=== PATIENT | female | born 1995 | race Caucasian/White ===

== ENCOUNTER 2021-02-20 15:54 | Emergency (ER) | payer OTHER, MEDICAID, SELFPAY ==
[2021-02-20 15:56] VITALS: BP 133/83; PULSE 104; RESP 16; TEMP 36.8; O2SAT 99; BMI 40.3
--- NOTE | 2021-02-20 16:02 | CT_ITS ---
INDICATION: Pain EXAMINATION: CT Abdomen And Pelvis W/O Contrast Injection TECHNIQUE: Helically acquired images were obtained of the abdomen and pelvis without the use of IV contrast. A radiation dose optimization technique was used for this scan. Oral contrast: None. COMPARISON: None FINDINGS: Evaluation of the solid organs and vascular structures is limited without intravenous contrast. Visualized lung bases: Unremarkable Liver: Unremarkable Gallbladder: Contracted. Spleen: Unremarkable Pancreas: Unremarkable Adrenal Glands: Unremarkable Kidneys: Unremarkable Vasculature: Unremarkable GI Tract: Unremarkable Lymphadenopathy: None Peritoneum: No ascites. Bladder: Unremarkable Reproductive organs: Unremarkable Bones/Soft tissues: No suspicious osseous or soft tissue lesions CT/Abdomen/Pelvis without Cont IMPRESSION: No acute abnormalities in the abdomen or pelvis. Electronically Signed: Vinicius Pinedo MD at 18:56 EDT Tel , Service support ,
--- NOTE | 2021-02-20 16:03 | EX.ED.DYSGE1 ---
HPI History of Present Illness Chief Complaint: Abd Pain Informant: patient and EMS Narrative Narrative: 26-year-old female states about 30 minutes prior to arrival she was at work and she got up to urinate. She developed severe sharp stabbing pains in the suprapubic area up to her umbilicus. She states that she got very diaphoretic hot and nauseated. She looked pale to her employer so they called EMS. She took 2 Tylenol before their arrival. She states that on the way here if they had any bumps it would hurt worse or if she moved it would hurt. If she stays still the pain is tolerable. She denies any prior abdominal surgeries currently takes no medications. Normal bowel movements. No urinary symptoms. PFSH PFSH no medical history Home Medications multivitamin with iron 1 tab PO DAILY 02/20/21 [History Last Taken Unknown] Allergy/AdvReac Type Severity Reaction Status Date / Time Bleach (Sodium Hypochlorite) Allergy Swelling Verified 06/09/17 10:06 shellfish derived Allergy Swelling Verified 02/20/21 15:55 Sulfa (Sulfonamide Allergy Anaphylaxis Verified 06/09/17 10:06 Antibiotics) no surgical history Social History (Updated 02/20/21 @ 16:[address] Pierce Yañez, DO) Smoking Status: Never smoker substance use type: does not use ROS ROS ED Constitutional Constitutional ED: Reports sweats; Denies chills or weight loss Eyes Eyes: Denies change in vision or diplopia ENT ENT ED: Denies ear pain, rhinorrhea or sore throat Cardiovascular Cardiovascular: Denies chest pain, orthopnea, palpitations or racing heartbeat Respiratory/Chest Respiratory/Chest: Denies cough, dyspnea or orthopnea Gastrointestinal Gastrointestinal: Reports abdominal pain and nausea; Denies diarrhea or vomiting Genitourinary Genitourinary ED: Denies dysuria, hematuria or urinary frequency Musculoskeletal Musculoskeletal: Denies arthralgias or myalgias Integumentary Denies abscess or rash Neurologic Neurologic: Denies headache(s) or weakness Psychiatric Psychiatric: Denies anxiety, depression, suicidal ideation or suicidal thoughts Endocrine Endocrinology: Denies polydipsia, polyphagia or polyuria Allergic/Immunologic Allergic/Immunologic ED: Denies mouth swelling, tongue swelling or urticaria EXAM Physical Exam Const Vital Signs: 02/20/21 15:56 02/20/21 18:32 02/20/21 20:01 Temperature 98.2 F Temperature Source Oral Pulse Rate 104 H 89 96 Respiratory Rate 16 16 16 Blood Pressure 133/83 H 141/66 H 124/99 H Blood Pressure Mean 99 91 107 Pulse Ox 99 98 97 Oxygen Delivery Method Room Air Room Air Room Air Positive well nourished and well developed General Appearance ED: well developed HEENT Reports normocephalic, head/scalp atraumatic and moist mucous membranes Eyes PERRL and EOMs intact bilaterally Neck no lymphadenopathy, supple and no JVD Resp normal respiratory effort and clear to auscultation bilaterally Cardio regular rate, regular rhythm and no murmurs GI Palpation: soft and tender periumbilical and suprapubic Back/Spine no CVA tenderness and normal ROM Extremity normal to inspection General Extremety ED: Negative for edema General Extremity: Negative for edema Neuro oriented x3 and CN's II-XII intact bilaterally Sensorium / Orientation: alert Motor Exam: strength 5/5 throughout Psych mental status grossly normal Mood & Affect: Negative for depressed or tearful Skin no rashes or lesions noted and no wounds MDM MDM MDM Narrative Medical decision making narrative: Basic blood work was negative. Urinalysis contaminated with 10-25 squamous cells but otherwise negative. CT of the abdomen pelvis also negative. The patient received a dose of Toradol. Being unable to exclude ovarian torsion and given the sudden onset of her lower abdominal pain pelvic ultrasound was obtained. This showed physiologic fluid in the cul-de-sac but otherwise negative. At this point I think the patient can be safely discharged home. Instructions to return 24 hours if worsening or continued symptoms or follow-up with primary care. Lab Data Attestation: I reviewed the patient's lab results. Labs: Laboratory Results - last 24 hr 02/20/21 02/20/21 02/20/21 16:00 16:00 17:02 WBC 8.5 RBC 4.79 Hgb 12.9 Hct 39.8 MCV 83.1 MCH 26.9 L MCHC 32.4 RDW Std Deviation 39.4 RDW Coeff of Serg 13.2 Plt Count 230 MPV 9.1 Immature Gran % (Auto) 0.500 Neut % (Auto) 73.5 H Lymph % (Auto) 19.5 [place] % (Auto) 3.9 Eos % (Auto) 2.1 Baso % (Auto) 0.5 Absolute Neuts (auto) 6.3 Absolute Lymphs (auto) 1.66 Nucleated RBC % 0 Sodium 138 Potassium 4.0 Chloride 105 Carbon Dioxide 28.0 Anion Gap 5 BUN 10 Creatinine 0.73 Estim Creat Clear Calc 88.12 Est GFR (MDRD) Af Amer 123 Est GFR (MDRD) Non-Af 102 BUN/Creatinine Ratio 13.6 Glucose 147 H Calcium 8.2 L Total Bilirubin 0.30 AST 14 L ALT 21 Alkaline Phosphatase 81 Total Protein 7.2 Albumin 3.4 Globulin 3.8 Albumin/Globulin Ratio 0.9 Urine Color Yellow Urine Clarity Sl. Cloudy Urine pH 7.0 Ur Specific [place] 1.010 Urine Protein 15 H Urine Glucose (UA) 50 H Urine Ketones Negative Urine Occult Blood Negative Urine Nitrite Negative Urine Bilirubin Negative Urine Urobilinogen Normal Ur Leukocyte Esterase 100 H Urine RBC 0 SEEN Urine WBC 0-5 SEEN Ur Squamous Epith Cells 10-25 SEEN Urine Bacteria 0 SEEN Urine Mucus 0 SEEN Urine Test Negative Radiography Diagnostic Testing: Radiology Impression Abdomen/Pelvis CT 02/20/21 16:02 IMPRESSION: No acute abnormalities in the abdomen or pelvis. Electronically Signed: Vinicius Pinedo MD at 18:56 EDT Tel , Service support , Pelvis Ultrasound 02/20/21 19:15 IMPRESSION: Trace free fluid in the cul-de-sac, likely physiologic. Otherwise negative study. Electronically Signed: Hortensia Lee MD at 20:57 EDT Tel , Service support , Discharge Plan Triage Chief Complaint: Abd Pain ED Provider: Pierce Yañez Dx/Rx/DC Orders Clinical Impression: Abdominal pain, acute Instructions: ED Abdominal Pain Unkn Cause Fem Prescriptions: No Action multivitamin with iron Tablet 1 tab PO DAILY RF: 0 Primary Care Provider: Kevin Arias Referrals: Kevin Arias MD [Primary Care Provider] - (In 48 hours if continued symptoms or return to emergency department if new symptoms or worsening) Disposition Disposition: Home, Self Care
[2021-02-20 16:12] LABS: Absolute Lymphocyte Count 1.66 X10^3/uL (0.83-4.51); Absolute Neutrophil Count 6.3 X10^3/uL (2.0-7.7); Basophil# 0.04 X10^3/uL; Basophil% 0.5 % (0-1); Eosinophil# 0.18 X10^3/uL; Eosinophils% 2.1 % (0-5); Hematocrit 39.8 % (37-47); Hemoglobin 12.9 g/dL (12.0-15.0); Lymphocyte # 1.66 X10^3/ul (0.83-4.51); Lymphocyte % 19.5 % (19-41); Mean Corp Hgb Conc 32.4 g/dL (32-36); Mean Corpuscular Hgb 26.9 pg (27.0-32.0); Mean Corpuscular Volume 83.1 fL (81-99); Mean Platelet Vol. 9.1 fl (6.2-12.0); Monocyte# 0.33 X10^3/uL; Monocyte% 3.9 % (0-10); NRBC Flagged by Analyzer 0 % (0-5); Neutrophil # 6.28 X10^3/uL (2.7-7.7); Neutrophil % 73.5 % (47-70); Platelet Count 230 K/mm3 (150-450); RBC Distribution Width CV 13.2 % (11.6-14.6); RBC Distribution Width SD 39.4 fl (35.1-43.9); Red Blood Count 4.79 M/mm3 (4.2-5.4); White Blood Count 8.5 K/mm3 (4.4-11.0)
[2021-02-20] MEDS: Ketorolac 30 MG/ML Syringe IV (16:20)
[2021-02-20 16:40] LABS: ALB/GLOB Ratio 0.9 RATIO (0.9-2.4); AST(SGOT) 14 U/L (15-37); Alanine Aminotransfer ALT/SGPT 21 U/L (13-56); Albumin, Serum 3.4 g/dL (3.2-5.0); Alkaline Phosphatase 81 U/L (45-117); Anion Gap 5 (5-15); BUN 10 mg/dL (7-18); BUN/Creat Ratio 13.6 RATIO (10-20); Calcium,Total 8.2 mg/dL (8.5-10.1); Chloride 105 mmol/L (98-107); Creatinine, Serum 0.73 mg/dL (0.55-1.02); EST Glomerular Filtration Rate 102 mL/min (>60); Est Glom Filt Rate - Afr Amer 123 mL/min (>60); Estimated Creatinine Clearance 88.12 ml/min; Globulin 3.8 g/dL (2.2-4.2); Glucose 147 mg/dL (74-106); Protein, Total 7.2 g/dL (6.4-8.2); Sodium Level 138 mmol/L (136-145)
[2021-02-20 17:07] LABS: Bacteria 0 SEEN /hpf (None Seen); Mucous, Urine 0 SEEN /hpf (<or=2+); Red Blood Cells-Urine 0 SEEN /hpf (0-5)
[2021-02-20 17:23] LABS: Color, Urine Yellow (Yellow); Glucose, Dipstick 50 mg/dl (Normal); Ketone-Dipstick Negative (Negative); Leukocyte Esterase-Dipstick 100 /ul (Negative); Nitrite-Dipstick Negative (Negative); Occult Blood-Urine Negative /ul (Negative); Protein-Dipstick 15 mg/dl (Negative); Urine Bilirubin Dipstick Negative (Negative); Urine Clarity Sl. Cloudy (Clear); Urine Urobilinogen Normal (Normal)
[2021-02-20 17:32] LABS: Squamous Epithelial Cells - UA 10-25 SEEN /hpf (5-10)
[2021-02-20 17:34] LABS: White Blood Cells 0-5 SEEN /hpf (0-5)
[2021-02-20 17:48] LABS: Internal QC Validated? YES +Cl - CLEAR BKGD; Pregnancy, Urine Negative Negative
[2021-02-20 18:32] VITALS: BP 141/66; PULSE 89; RESP 16; O2SAT 98
--- NOTE | 2021-02-20 19:15 | US_ITS ---
EXAM: US PELVIS TRANSABDOMINAL, COMPLETE CLINICAL INDICATION: PELVIC PAIN TECHNIQUE: Transabdominal pelvic ultrasound was performed with grayscale and color Doppler imaging. This report was created using [employer] 3D report generation technology. COMPARISON: CT abdomen pelvis 02/20/2021. FINDINGS: UTERUS/CERVIX: Uterus is normal in size and echogenicity measuring 9 x 3.5 x 5.5 cm. Endometrial thickness is normal measuring 7 mm. Anteverted. There is no uterine mass. RIGHT OVARY: Right ovary is normal in size and echogenicity measuring 2 x 2.1 x 3.5 cm. No mass or dominant cyst. Blood flow is present in the right ovary. LEFT OVARY: Left ovary is normal in size and echogenicity measuring 2.8 x 3.3 x 2.4 cm. No mass or dominant cyst. Blood flow is present in the left ovary. FREE FLUID: Trace free fluid in the cul-de-sac. BLADDER: Unremarkable as visualized. Wall is normal thickness for degree of distention. US/Pelvic (Non ) IMPRESSION: Trace free fluid in the cul-de-sac, likely physiologic. Otherwise negative study. Electronically Signed: Hortensia Lee MD at 20:57 EDT Tel , Service support ,
[2021-02-20 20:01] VITALS: BP 124/99; PULSE 96; RESP 16; O2SAT 97
[2021-02-20 21:08] VITALS: BP 125/82; PULSE 97; RESP 17; O2SAT 99
== END 2021-02-20 21:10 | disposition home or self-care (01) ==
PROVIDERS: Emergency Provider Emergency Medicine; PCP Family Medicine
DX: R10.33 Periumbilical pain (principal); R10.2 Pelvic and perineal pain
CPT/HCPCS: 74176; 76856; 80053; 81001; 81025; 85025; 93976; 96374; 99285; A4216

== ENCOUNTER 2024-07-18 10:16 | Emergency (ER) | payer OTHER, SELFPAY ==
[2024-07-18 10:17] VITALS: BP 158/76; PULSE 99; RESP 16; TEMP 36.4; O2SAT 98
--- NOTE | 2024-07-18 12:15 | EX.ED.DYSGE1 ---
HPI History of Present Illness Chief Complaint: Lower Extremity Injury Narrative Narrative: Chief complaint and HPI: Right ankle pain. 29-year-old female with no significant past medical history presents for evaluation of right ankle pain. Patient states that she was holding her toddler this morning when she tripped on a step and inverted her right ankle. She states that she heard a pop in her ankle. Endorses pain mostly at the lateral malleolus but states that it slightly radiates into her calf from this area. She denies any foot pain. Denies any knee pain. Denies heel pain. Denies Achilles tendon pain. Did not hit her head. Pain is worse with ambulation. Review of systems: See HPI Medications: As listed on the chart Allergies: As listed on the chart PFSH: Per chart Vital signs: As listed on the chart. Reviewed. Physical exam: Gen: A&O x3, NAD Head: Normocephalic, atraumatic Eyes: No sclera icterus, conjunctiva clear ENT: Moist mucous membranes Neck: Full range of motion CV: Regular Resp: Nonlabored respiration Musc: Limited range of motion of the right ankle secondary to pain, swelling and tenderness to palpation of the lateral and medial malleolus-lateral malleolus has more swelling and pain, no ecchymosis, entire foot and heel nontender, no Achilles tenderness, DP/PT pulses plus 2 out of 4 bilaterally, knee and calf nontender to palpation, compartments soft Skin: Warm, dry Neuro: Alert, oriented, grossly intact, sensation intact Psych: Cooperative, appropriate mood and affect PFSH PFSH Medical History no medical history Home Medications ?Medication ?Instructions ?Recorded ?Last Taken ?Type multivitamin with iron 1 tab PO DAILY 02/20/21 Unknown History Allergy/AdvReac Type Severity Reaction Status Date / Time Bleach (Sodium Hypochlorite) Allergy Swelling Verified 07/18/24 10:17 shellfish derived Allergy Swelling Verified 07/18/24 10:17 Sulfa (Sulfonamide Allergy Anaphylaxis Verified 07/18/24 10:17 Antibiotics) Family History no significant family his Surgical History no surgical history Social History (Updated 02/20/21 @ 16:[address] Pierce Yañez, DO) Smoking Status: Never smoker substance use type: does not use EXAM Physical Exam Const Vital Signs: 07/18/24 10:17 Temperature 97.6 F L Temperature Source Temporal Pulse Rate 99 Respiratory Rate 16 Blood Pressure 158/76 H Blood Pressure Mean 103 Pulse Ox 98 Oxygen Delivery Method Room Air MDM MDM MDM Narrative Medical decision making narrative: 29-year-old female with no significant past medical history presents for evaluation of right ankle pain. Differential diagnosis includes but is not limited to sprain or fracture. Percocet and Zofran ordered for symptoms. X-ray of the ankle ordered. X-ray of the ankle was interpreted/reviewed by me, ED physician. No fracture or dislocation. Patient's soft tissue swelling is observed. Patient's pain is likely secondary to an ankle sprain. Patient placed in Aircast. Crutches as needed for weightbearing. Follow-up with orthopedics and PCP. She confirmed understanding of the plan. Tylenol Motrin as needed for pain. Ice and elevation. She confirmed understanding. Impression: 1. Right ankle sprain 2. Fall downstairs Radiography Diagnostic Testing: Clinical Impression(s) from Imaging Studies Ankle X-Ray 07/18/24 12:20 IMPRESSION: Diffuse soft tissue swelling. Electronically Signed: Julian Barker MD at 13:24 EST Reading Location ID and State: [facility] / [place] , Service support , Discharge Plan Triage Chief Complaint: Lower Extremity Injury ED Provider: Stephon Mccrary Dx/Rx/DC Orders Clinical Impression: Right ankle sprain Instructions: ED Ankle Sprain (Adult), ED RICE Prescriptions: No Action multivitamin with iron Tablet 1 tab PO DAILY Primary Care Provider: Kevin Arias Referrals: Kevin Arias MD [Primary Care Provider] - 3-5 Days Cb Mann MD [Med Staff - Active Staff] - 3-5 Days Activity Restrictions/Additional Instructions: Motrin and Tylenol as needed for pain. Weightbearing as tolerated. Follow-up with orthopedics and primary care physician. Print Language: Burmese Disposition Disposition: Home, Self Care Discharge Date/Time: 07/18/24 14:14
--- NOTE | 2024-07-18 12:20 | RAD_ITS ---
STUDY: X-RAY - RIGHT ANKLE REASON FOR EXAM: Female, 29 years old. Right ankle pain following injury. TECHNIQUE: 3 view(s) of the ankle. COMPARISON: None. FINDINGS: Normal visualized distal tibia and fibula. Normal medial and lateral malleoli. Normal tibiotalar articulation and ankle mortise. Normal visualized talus and calcaneus. The visualized subtalar, talonavicular, calcaneocuboid and tarsal articulations are normal. Diffuse soft tissue swelling. RAD/Ankle min 3 Views IMPRESSION: Diffuse soft tissue swelling. Electronically Signed: Julian Barker MD at 13:24 EST ,
[2024-07-18] MEDS: HYDROcodone Bitartrate/Apap 5/325 Tablet PO (12:30)
[2024-07-18] MEDS: Ondansetron ODT 4 MG Tablet PO (12:30)
== END 2024-07-18 14:14 | disposition home or self-care (01) ==
PROVIDERS: Emergency Provider Surgery; PCP Family Medicine; Visit Provider Surgery
DX: S93.401A Sprain of unspecified ligament of right ankle, initial encounter (principal); W10.9XXA Fall (on) (from) unspecified stairs and steps, initial encounter
CPT/HCPCS: 73610; 99284

== ENCOUNTER 2024-12-16 16:16 | Inpatient (IN) | payer OTHER, SELFPAY ==
[2024-12-16] VITALS (7 sets, daily range): BP systolic 100–129; BP diastolic 70–94; PULSE 70–89; RESP 15–16; TEMP 36.7–36.8; O2SAT 99–100; BMI 42.3; BMI 42.6
--- NOTE | 2024-12-16 16:36 | US_ITS ---
PROCEDURE: ABDOMEN LIMITED 12/16/2024 REASON FOR EXAM: PAIN/N/V TECHNIQUE: Complete abdominal ultrasound elkins-scale images with color doppler. PATIENT PREPARATION: Per protocol FINDINGS: Liver: Hepatomegaly, craniocaudal length 20 cm. Diffuse steatosis. Gallbladder: No stones, sludge, wall thickening or tenderness. Common bile duct: Dilated measuring up to 5 mm. Pancreas: Visualized portions are sonographically unremarkable. Kidneys: The right kidney measures 11.1 cm. No calculi or hydronephrosis. No focal lesion. US/Abdomen Limited IMPRESSION: Cholelithiasis and mildly dilated common bile duct. No visualized obstructing lesion or calculus. Hepatomegaly and diffuse steatosis Reading Location: [facility]
--- NOTE | 2024-12-16 16:38 | EDS_ITS ---
HPI HPI - GI History of Present Illness Chief Complaint: Abd Pain Informant: patient Narrative Narrative: Intermittent abdominal pain started yesterday, she did not eat at all yesterday. She had some nausea. Today the pain is much worse an hour or 2 after eating a bologna sandwich it is right upper quadrant along with nausea and dry heaves. No prior blood rectum no hematemesis. Never had this before. No abdominal surgeries in the past. No problems urinating recently. Hurts to take a deep breath, but she denies any cough or fever/chills recently no recent long travel out of the area or hospitalization/surgery, no leg pain or swelling. PFSH PFSH Medical History no medical history no medical history Home Medications ?Medication ?Instructions ?Recorded ?Last Taken ?Type NK 12/16/24 Unknown History Allergy/AdvReac Type Severity Reaction Status Date / Time diphenhydramine (From Allergy Intermediate Hives Verified 12/16/24 16:16 Benadryl) Bleach (Sodium Hypochlorite) Allergy Swelling Verified 12/16/24 16:16 shellfish derived Allergy Swelling Verified 12/16/24 16:16 Sulfa (Sulfonamide Allergy Anaphylaxis Verified 12/16/24 16:16 Antibiotics) Surgical History no surgical history Social History Smoking Status: Never smoker substance use type: does not use ROS ROS ED Constitutional Constitutional ED: Denies chills or fever(s) Eyes Eyes: Denies change in vision or diplopia ENT ENT ED: Denies rhinorrhea or sore throat Cardiovascular Cardiovascular: Denies chest pain or palpitations Respiratory/Chest Respiratory/Chest: Denies cough or dyspnea Gastrointestinal Gastrointestinal: Reports abdominal pain, nausea and vomiting; Denies diarrhea, hematemesis, hematochezia or melena Genitourinary Genitourinary ED: Denies dysuria or hematuria Musculoskeletal Musculoskeletal: Denies back pain or neck pain Integumentary Denies abscess or rash Neurologic Neurologic: Denies headache(s), paresthesias or weakness Psychiatric Psychiatric: Denies anxiety or suicidal thoughts EXAM Physical Exam Const Vital Signs: 12/16/24 16:16 12/16/24 18:16 12/16/24 20:00 Temperature 98.1 F Temperature Source Oral Pulse Rate 89 78 Respiratory Rate 16 16 Blood Pressure 129/94 H 126/89 H 117/70 Blood Pressure Mean 105 101 85 Pulse Ox 100 99 99 Oxygen Delivery Method Room Air Positive well nourished and well developed General Appearance ED: well developed and NAD HEENT Reports moist mucous membranes normocephalic and atraumatic Eyes PERRL and EOMs intact bilaterally Neck full ROM and supple Resp normal respiratory effort and clear to auscultation bilaterally Cardio regular rate, regular rhythm and no murmurs GI non-distended GI Narrative: Right upper quadrant epigastric tenderness, with a positive Cheema. Rest the abdomen is benign. Soft abdomen no rebound tenderness. Auscultation: normoactive bowel sounds Palpation: soft Back/Spine no CVA tenderness General Back: other FROM Extremity normal to inspection General Extremety ED: Negative for edema, pulses abnormal or tenderness General Extremity: Negative for edema or pulses abnormal Neuro oriented x3, CN's II-XII intact bilaterally and no sensory deficits noted Sensorium / Orientation: awake and alert Motor Exam: strength 5/5 throughout Skin no rashes or lesions noted and no wounds MDM MDM MDM Narrative Medical decision making narrative: Concerning history for biliary colic/acute cholecystitis. Patient was given Toradol she does not want anything narcotic, she did have improvement with her pain, but is still quite tender in the right upper quadrant and epigastrium. Her labs show elevated AST, ALT, alkaline phosphatase. Total bilirubin is normal. Ultrasound obtained on my interpretation shows gallstones without obvious pericholecystic fluid or gallbladder wall thickening. Radiology in agreement, stating also that the common bile duct was mildly dilated but without an obvious stone/obstruction. I suspect this may be indicative of early acute cholecystitis. Discussed with surgery Dr. Etienne. He examined in the ED and will admit. Jerome arias. Lab Data Attestation: I reviewed the patient's lab results. Labs: Laboratory Results - last 24 hr 12/16/24 12/16/24 16:30 18:29 WBC 8.6 RBC 5.17 Hgb 13.8 Hct 42.2 MCV 81.6 MCH 26.7 L MCHC 32.7 RDW Std Deviation 40.0 RDW Coeff of Serg 13.6 Plt Count 327 MPV 9.3 Immature Gran % (Auto) 0.300 Neut % (Auto) 76.0 H Lymph % (Auto) 13.8 L [place] % (Auto) 7.6 Eos % (Auto) 1.7 Baso % (Auto) 0.6 Absolute Neuts (auto) 6.5 Absolute Lymphs (auto) 1.18 Nucleated RBC % 0 Sodium 141 Potassium 4.2 Chloride 105 Carbon Dioxide 23.9 Anion Gap 12 BUN 8 Creatinine 0.79 Estim Creat Clear Calc 110.44 Est GFR (MDRD) Non-Af 104 BUN/Creatinine Ratio 10.6 Glucose 114 H Calcium 9.5 Total Bilirubin 1.30 AST 272 H ALT 176 H Alkaline Phosphatase 114 H Total Protein 7.6 Albumin 4.3 Globulin 3.3 Albumin/Globulin Ratio 1.3 Lipase 43 Urine Color Yellow Urine Clarity Sl. Cloudy Urine pH 7.0 Ur Specific [place] 1.010 Urine Protein Negative Urine Glucose (UA) Normal Urine Ketones Negative Urine Occult Blood Negative Urine Nitrite Negative Urine Bilirubin Negative Urine Urobilinogen 1 H Ur Leukocyte Esterase Negative Urine RBC 0 SEEN Urine WBC 0-5 SEEN Ur Squamous Epith Cells 5-10 SEEN Urine Bacteria 2+ Urine Mucus 0 SEEN Radiography Diagnostic Testing: Clinical Impression(s) from Imaging Studies Abdomen Ultrasound 12/16/24 16:36 IMPRESSION: Cholelithiasis and mildly dilated common bile duct. No visualized obstructing lesion or calculus. 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
[2024-12-16] MEDS: Ketorolac 30 MG/ML Syringe IV (16:43)
[2024-12-16] MEDS: 0.9% Normal Saline (1000mL) 1,000 ML 999 ML IV (16:43)
[2024-12-16] MEDS: Ondansetron 4 MG/2 ML Vial IV (16:43)
[2024-12-16 16:48] LABS: Absolute Lymphocyte Count 1.18 X10^3/uL (0.83-4.51); Absolute Neutrophil Count 6.5 X10^3/uL (2.0-7.7); Basophil# 0.05 X10^3/uL; Basophil% 0.6 % (0-1); Eosinophil# 0.15 X10^3/uL; Eosinophils% 1.7 % (0-5); Hematocrit 42.2 % (37-47); Hemoglobin 13.8 g/dL (12.0-15.0); Lymphocyte # 1.18 X10^3/ul (0.83-4.51); Lymphocyte % 13.8 % (19-41); Mean Corp Hgb Conc 32.7 g/dL (32-36); Mean Corpuscular Hgb 26.7 pg (27.0-32.0); Mean Corpuscular Volume 81.6 fL (81-99); Mean Platelet Vol. 9.3 fl (6.2-12.0); Monocyte# 0.65 X10^3/uL; Monocyte% 7.6 % (0-10); NRBC Flagged by Analyzer 0 % (0-5); Neutrophil # 6.52 X10^3/uL (2.7-7.7); Platelet Count 327 K/mm3 (150-450); RBC Distribution Width CV 13.6 % (11.6-14.6); Red Blood Count 5.17 M/mm3 (4.2-5.4); White Blood Count 8.6 K/mm3 (4.4-11.0)
[2024-12-16 17:02] LABS: ALB/GLOB Ratio 1.3 RATIO (0.9-2.4); AST(SGOT) 272 U/L (<=31); Alanine Aminotransfer ALT/SGPT 176 U/L (<=34); Albumin, Serum 4.3 g/dL (3.5-5.0); Alkaline Phosphatase 114 U/L (35-104); Anion Gap 12 (5-15); BUN 8 mg/dL (4-19); BUN/Creat Ratio 10.6 RATIO (10-20); Calcium,Total 9.5 mg/dL (7.6-11.0); Carbon Dioxide 23.9 mmol/L (21.0-32.0); Chloride 105 mmol/L (98-108); Creatinine, Serum 0.79 mg/dL (0.70-1.20); EST Glomerular Filtration Rate 104 (>60); Estimated Creatinine Clearance 110.44 ml/min (50-250); Globulin 3.3 g/dL (2.2-4.2); Glucose 114 mg/dL (70-99); Lipase 43 U/L (13-75); Potassium 4.2 mmol/L (3.3-5.1); Protein, Total 7.6 g/dL (5.9-8.4); Sodium Level 141 mmol/L (133-145)
[2024-12-16 18:32] LABS: Mucous, Urine 0 SEEN /hpf (<or=2+); Red Blood Cells-Urine 0 SEEN /hpf (0-5)
[2024-12-16 18:42] LABS: Color, Urine Yellow (Yellow); Glucose, Dipstick Normal (Normal); Ketone-Dipstick Negative (Negative); Leukocyte Esterase-Dipstick Negative /ul (Negative); Nitrite-Dipstick Negative (Negative); Occult Blood-Urine Negative /ul (Negative); Protein-Dipstick Negative (Negative); Urine Bilirubin Dipstick Negative (Negative); Urine Clarity Sl. Cloudy (Clear); Urine Urobilinogen 1 mg/dl (Normal)
[2024-12-16 18:53] LABS: Bacteria 2+ /hpf (None Seen); Squamous Epithelial Cells - UA 5-10 SEEN /hpf (5-10); White Blood Cells 0-5 SEEN /hpf (0-5)
--- NOTE | 2024-12-16 21:09 | HP.PCM_ITS ---
HPI - General General Date of Admission: 12/16/24 Chief Complaint: Acute onset abdominal pain HPI Narrative ABHIJIT BUNN, is a 29 F who presents to [facility] emergency department after experiencing acute onset abdominal pain following a meal of a bologna sandwich at approximately 2 PM this afternoon. She states she consumed a sandwich and sat down to read when she felt intense pain in her right upper quadrant as if someone was stuffing softballs up under [her] ribs. Associated symptoms included nausea and feeling of being exceptionally hot. She states she never experienced symptoms of the intensity that she experienced earlier today and this is what led her to present to the ER, however, she acknowledges approximately a 6 to 9-month history of postprandial discomfort. The latter has been investigated with EGD and gastric emptying studies through the [facility] which patient states are within normal limits and there was no good explanation for her symptoms given. Patient's ER workup included CBC was notable for mild shift but no leukocytosis. CMP demonstrated mild elevations of her AST, ALT, and alkaline phosphatase. Total bilirubin was within normal limits. Right upper quadrant ultrasound was obtained and showed cholelithiasis with normal gallbladder wall thickness of 2.2 mm but radiology dictated that the common bile duct was at the upper limits of normal at 5 mm. They did note along with this that there was no visible stone obstructing the lumen. Patient has no regular medications and has never undergone surgery. [facility] Medical History no medical history Home Medications ?Medication ?Instructions ?Recorded ?Last Taken ?Type NK 12/16/24 Unknown History Allergy/AdvReac Type Severity Reaction Status Date / Time diphenhydramine (From Allergy Intermediate Hives Verified 12/16/24 16:16 Benadryl) Bleach (Sodium Hypochlorite) Allergy Swelling Verified 12/16/24 16:16 shellfish derived Allergy Swelling Verified 12/16/24 16:16 Sulfa (Sulfonamide Allergy Anaphylaxis Verified 12/16/24 16:16 Antibiotics) Surgical History no surgical history Social History Smoking Status: Never smoker substance use type: does not use Vital Signs Vital Signs Vital Signs: 12/16/24 16:16 12/16/24 18:16 12/16/24 20:00 Temperature 98.1 F Temperature Source Oral Pulse Rate 89 78 Respiratory Rate 16 16 Blood Pressure 129/94 H 126/89 H 117/70 Blood Pressure Mean 105 101 85 Pulse Ox 100 99 99 Oxygen Delivery Method Room Air 12/16/24 21:08 Temperature 98.2 F Temperature Source Pulse Rate 72 Respiratory Rate 16 Blood Pressure 100/71 Blood Pressure Mean 80 Pulse Ox 99 Oxygen Delivery Method Weight Weight: 216 lb 8 oz Body Mass Index (BMI) 42.3 Physical Exam Const alert, oriented x3 and well nourished Resp normal respiratory effort GI GI Narrative: Obese, no visible herniation, numerous abdominal striae, nondistended, soft, tender to palpation with positive Cheema sign. In the supraumbilical position there is a scar from a prior umbilical piercing that is now close Results Lab / Micro Data 12/16/24 16:30 12/16/24 16:30 Labs: Laboratory Results - last 24 hr 12/16/24 16:30: WBC 8.6, RBC 5.17, Hgb 13.8, Hct 42.2, MCV 81.6, MCH 26.7 L, MCHC 32.7, RDW Std Deviation 40.0, RDW Coeff of Serg 13.6, Plt Count 327, MPV 9.3, Immature Gran % (Auto) 0.300, Neut % (Auto) 76.0 H, Lymph % (Auto) 13.8 L, [place] % (Auto) 7.6, Eos % (Auto) 1.7, Baso % (Auto) 0.6, Absolute Neuts (auto) 6.5, Absolute Lymphs (auto) 1.18, Nucleated RBC % 0, Sodium 141, Potassium 4.2, Chloride 105, Carbon Dioxide 23.9, Anion Gap 12, BUN 8, Creatinine 0.79, Estim Creat Clear Calc 110.44, Est GFR (MDRD) Non-Af 104, BUN/Creatinine Ratio 10.6, G lucose 114 H, Calcium 9.5, Total Bilirubin 1.30, AST 272 H, ALT 176 H, Alkaline Phosphatase 114 H, Total Protein 7.6, Albumin 4.3, Globulin 3.3, Albumin/Globulin Ratio 1.3, Lipase 43 12/16/24 18:29: Urine Color Yellow, Urine Clarity Sl. Cloudy, Urine pH 7.0, Ur Specific [place] 1.010, Urine Protein Negative, Urine Glucose (UA) Normal, Urine Ketones Negative, Urine Occult Blood Negative, Urine Nitrite Negative, Urine Bilirubin Negative, Urine Urobilinogen 1 H, Ur Leukocyte Esterase Negative, Urine RBC 0 SEEN, Urine WBC 0-5 SEEN, Ur Squamous Epith Cells 5-10 SEEN, Urine Bacteria 2+, Urine Mucus 0 SEEN Imaging Radiology Impression Abdomen Ultrasound 12/16/24 16:36 IMPRESSION: Cholelithiasis and mildly dilated common bile duct. No visualized obstructing lesion or calculus. Hepatomegaly and diffuse steatosis Reading Location: [facility] Assessment & Plan Assessment/Plan (1) Cholelithiasis: PLAN: Patient is a 29-year-old female who is presenting with acute onset right upper quadrant abdominal discomfort that occurred in the postprandial setting. Her history is consistent with a biliary source and workup showing cholelithiasis and both elevated transaminases and alkaline phosphatase is concerning for possible common bile duct stone that is either persistent or recently passed. Radiology comments that the common bile duct is at the upper limits of normal but I would generally consider 6 mm to be that limit. As indicated above, patient has persistent tenderness despite several hours of workup here in the ER and multiple rounds of pain medication. Therefore my differential would include possible early acute cholecystitis (not yet manifest on labs and ultrasound imaging) versus biliary colic with possible choledocholithiasis. Given the significant nature of some of these differentials as well as patient's persistent symptoms I recommend inpatient admission and proceeding with surgical cholecystectomy and intraoperative cholangiography. Hand drawing was made of the relevant anatomy and a detailed description of the possible diagnoses was given. I then offered my recommendation the patient and her and they readily accepted. Patient will be admitted to the [facility] floor with plans for surgery tomorrow. She will be made n.p.o. past midnight and initiated on empiric antibiotics for coverage in the event that she, in fact, does represent a case of choledocholithiasis. To this latter point she was made aware that if cholangiogram is positive she would require subsequent ERCP with gastroenterology. She confirmed understanding. Tao Etinene MD General Surgery Endocrine Surgery Pager: [facility] [address] [place] [address], [facility], [address] [place] [address] Office: [phone] (2) Elevated liver function tests: (3) Abdominal pain, acute: Charges/Coding Visit Charges Office Visits / Consults: [id number] ED Visit; Moderate Severity
[2024-12-16] MEDS: Piperacil/Tazobactam 3.375 GM/50 ML ML IV (21:16)
[2024-12-16] MEDS: Acetaminophen 500 MG Tablet PO (22:21)
[2024-12-16] MEDS: 0.9% Normal Saline (1000mL) 1,000 ML 125 ML IV (22:24)
[2024-12-16 22:53] LABS: Internal QC Validated? YES +Cl - CLEAR BKGD; Pregnancy, Urine Negative Negative
[2024-12-17] VITALS (15 sets, daily range): BP systolic 98–135; BP diastolic 56–90; PULSE 60–87; RESP 14–16; TEMP 36.3–37.1; O2SAT 89–100; BMI 42.6
[2024-12-17] MEDS: Piperacil/Tazobactam 3.375 GM in 0.9% Normal Saline (50mL MB+) 50 ML IV ×3 (05:30→22:49)
[2024-12-17] MEDS: 0.9% Normal Saline (1000mL) 1,000 ML 125 ML IV ×2 (05:31→18:47)
[2024-12-17] MEDS: 0.9% Normal Saline (250mL Bag) 250 ML 15 ML IV (05:31)
--- NOTE | 2024-12-17 06:00 | EKG12_ITS ---
Test Reason : PRE-OP Blood Pressure : */* mmHG Vent. Rate : 71 BPM Atrial Rate : 71 BPM P-R Int : 160 ms QRS Dur : 82 ms QT Int : 388 ms P-R-T Axes : 41 24 24 degrees QTcB Int : 421 ms Normal sinus rhythm with sinus arrhythmia Normal ECG No previous ECGs available Confirmed by Tao Jama ([id number]), development editor ABNER THOMAS ([id number]) on 12/17/2024 11:56:11 AM Referred By: Tao Etienne Confirmed By: Tao Jama
[2024-12-17 06:02] LABS: Absolute Lymphocyte Count 1.46 X10^3/uL (0.83-4.51); Absolute Neutrophil Count 2.7 X10^3/uL (2.0-7.7); Basophil# 0.04 X10^3/uL; Basophil% 0.8 % (0-1); Eosinophil# 0.19 X10^3/uL; Hematocrit 39.3 % (37-47); Hemoglobin 12.7 g/dL (12.0-15.0); Lymphocyte # 1.46 X10^3/ul (0.83-4.51); Lymphocyte % 30.9 % (19-41); Mean Corp Hgb Conc 32.3 g/dL (32-36); Mean Corpuscular Hgb 26.7 pg (27.0-32.0); Mean Corpuscular Volume 82.7 fL (81-99); Mean Platelet Vol. 9.5 fl (6.2-12.0); Monocyte% 6.4 % (0-10); NRBC Flagged by Analyzer 0 % (0-5); Neutrophil # 2.72 X10^3/uL (2.7-7.7); Neutrophil % 57.7 % (47-70); Platelet Count 293 K/mm3 (150-450); RBC Distribution Width CV 13.7 % (11.6-14.6); RBC Distribution Width SD 41.5 fl (35.1-43.9); Red Blood Count 4.75 M/mm3 (4.2-5.4); White Blood Count 4.7 K/mm3 (4.4-11.0)
[2024-12-17 06:30] LABS: ALB/GLOB Ratio 1.4 RATIO (0.9-2.4); AST(SGOT) 545 U/L (<=31); Alanine Aminotransfer ALT/SGPT 503 U/L (<=34); Albumin, Serum 3.8 g/dL (3.5-5.0); Alkaline Phosphatase 133 U/L (35-104); Anion Gap 9 (5-15); BUN 6 mg/dL (4-19); BUN/Creat Ratio 10.6 RATIO (10-20); Calcium,Total 8.4 mg/dL (7.6-11.0); Carbon Dioxide 22.3 mmol/L (21.0-32.0); Chloride 107 mmol/L (98-108); EST Glomerular Filtration Rate 125 (>60); Estimated Creatinine Clearance 146.11 ml/min (50-250); Globulin 2.7 g/dL (2.2-4.2); Glucose 97 mg/dL (70-99); Potassium 3.9 mmol/L (3.3-5.1); Protein, Total 6.4 g/dL (5.9-8.4); Sodium Level 138 mmol/L (133-145)
--- NOTE | 2024-12-17 07:51 | RAD_ITS ---
EXAM: DX cholangiogram or initial CLINICAL HISTORY: Abdominal pain, laparoscopic cholecystectomy TECHNIQUE: Intraoperative cholangiogram with 190 fluoroscopic video spot images FINDINGS: Fluoroscopy time 48.3 seconds Cumulative dose 32.83 mGy Cholangiogram via the cystic duct shows opacification of intra and extrahepatic bile ducts without filling defect. Contour appears smooth. By the end of the images contrast is not yet seen within the duodenum. Please refer to operative report for further detail. RAD/Cholangiogram/ O R,Initial IMPRESSION: Intraoperative cholangiogram fluoroscopy as above. Reading Location: [id number]
--- NOTE | 2024-12-17 07:54 | PN.SURG_ITS ---
Subjective Subjective Patient evaluated resting in bed. She notes pain in the right upper quadrant. She notes minimal amount of nausea. Objective Data Objective Data Vital Signs: Vital Signs Temp Pulse Resp BP Pulse Ox O2 Del Method 98.3 F 73 14 125/83 H 100 Room Air 12/17/24 03:43 12/17/24 03:43 12/17/24 03:43 12/17/24 03:43 12/17/24 03:43 12/17/24 03:47 Oxygen Delivery Method Room Air Weight: 218 lb 4.122 oz Body Mass Index (BMI) 42.6 Intake & Output: Intake and Output for Last 24 Hours 12/15/24 12/16/24 12/17/24 23:59 23:59 23:59 Intake Total 1050 / 1750 1616.33 / 1616.33 Balance 1050 / 1750 1616.33 / 1616.33 Lab / Micro Data 12/17/24 05:40 12/17/24 05:40 Labs: Laboratory Results - last 24 hr 12/16/24 16:30: WBC 8.6, RBC 5.17, Hgb 13.8, Hct 42.2, MCV 81.6, MCH 26.7 L, MCHC 32.7, RDW Std Deviation 40.0, RDW Coeff of Serg 13.6, Plt Count 327, MPV 9.3, Immature Gran % (Auto) 0.300, Neut % (Auto) 76.0 H, Lymph % (Auto) 13.8 L, [place] % (Auto) 7.6, Eos % (Auto) 1.7, Baso % (Auto) 0.6, Absolute Neuts (auto) 6.5, Absolute Lymphs (auto) 1.18, Nucleated RBC % 0, Sodium 141, Potassium 4.2, Chloride 105, Carbon Dioxide 23.9, Anion Gap 12, BUN 8, Creatinine 0.79, Estim Creat Clear Calc 110.44, Est GFR (MDRD) Non-Af 104, BUN/Creatinine Ratio 10.6, G lucose 114 H, Calcium 9.5, Total Bilirubin 1.30, AST 272 H, ALT 176 H, Alkaline Phosphatase 114 H, Total Protein 7.6, Albumin 4.3, Globulin 3.3, Albumin/Globulin Ratio 1.3, Lipase 43 12/16/24 18:29: Urine Color Yellow, Urine Clarity Sl. Cloudy, Urine pH 7.0, Ur Specific [place] 1.010, Urine Protein Negative, Urine Glucose (UA) Normal, Urine Ketones Negative, Urine Occult Blood Negative, Urine Nitrite Negative, Urine Bilirubin Negative, Urine Urobilinogen 1 H, Ur Leukocyte Esterase Negative, Urine RBC 0 SEEN, Urine WBC 0-5 SEEN, Ur Squamous Epith Cells 5-10 SEEN, Urine Bacteria 2+, Urine Mucus 0 SEEN 12/16/24 22:20: Urine Test Negative 12/17/24 05:40: WBC 4.7, RBC 4.75, Hgb 12.7, Hct 39.3, MCV 82.7, MCH 26.7 L, MCHC 32.3, RDW Std Deviation 41.5, RDW Coeff of Serg 13.7, Plt Count 293, MPV 9.5, Immature Gran % (Auto) 0.200, Neut % (Auto) 57.7, Lymph % (Auto) 30.9, [place] % (Auto) 6.4, Eos % (Auto) 4.0, Baso % (Auto) 0.8, Absolute Neuts (auto) 2.7, Absolute Lymphs (auto) 1.46, Nucleated RBC % 0, Sodium 138, Potassium 3.9, Chloride 107, Carbon Dioxide 22.3, Anion Gap 9, BUN 6, Creatinine 0.60 L, Estim Creat Clear Calc 146.11, Est GFR (MDRD) Non-Af 125, BUN/Creatinine Ratio 10.6, Glucose 97, Calcium 8.4, Total Bilirubin 1.10, AST 545 H, ALT 503 H, Alkaline Phosphatase 133 H, Total Protein 6.4, Albumin 3.8, Globulin 2.7, Albumin/Globulin Ratio 1.4 Radiography Diagnostic Testing: Radiology Impression Abdomen Ultrasound 12/16/24 16:36 IMPRESSION: Cholelithiasis and mildly dilated common bile duct. No visualized obstructing lesion or calculus. Hepatomegaly and diffuse steatosis Reading [facility] Physical Exam GI GI Narrative: Abdomen- soft, tenderness in the RUQ. Positive Cheema's sign Assessment & Plan Assessment/Plan (1) Cholelithiasis: (2) Acute calculous cholecystitis: PLAN: Plan I am following this patient in conjunction with Dr. Etienne. He has independently evaluated this patient. Labs reviewed. Liver enzymes increased Plan for laparoscopic cholecystectomy with intraoperative cholangiogram with Dr. Etienne at 2:30 today We will continue to monitor this patient Charges/Coding Visit Charges Inpatient E&M: 88126 Subs Hosp L1 (pre-op)
[2024-12-17] MEDS: 0.9% Saline Lock 10 ML Syringe IV (07:55)
[2024-12-17] MEDS: HYDROmorphone 0.5 MG/0.5 ML SYRINGE IV (07:55)
[2024-12-17] MEDS: Ondansetron 4 MG/2 ML Vial IV ×2 (08:00→20:03)
[2024-12-17] MEDS: 0.9% Normal Saline (1000mL) 1,000 ML 15 ML IV (13:45)
--- NOTE | 2024-12-17 14:08 | PCM.PRE.AN2 ---
ASA Classification* ASA Classification ASA Classification: 3 Assessment & Plan Anesthesia* Anesthesia Assessment Anesthesia Assessment: Discussed sedation and/or anesthesia options, risks, benefits, and alternatives with patient/parents/legal guardian/POA. Questions invited. The patient/parents/legal guardian/POA seems to understand and agrees to proceed with anesthesia plan. Reviewed the physical assessment, medical history, allergy history and patient home medications list prior to surgery/procedure/anesthetic and documented any changes. Performed airway and anesthesia risk assessments. Anesthesia Type Anesthesia Type: General History Source History Obtained from:: Patient and Chart Anesthesia Focused Assessment* Temperature: 97.6 F Pulse Rate: 73 Blood Pressure: 122/77 Respiratory Rate: 16 Pulse Ox: 99 Oxygen Delivery Method: Room Air Airway Assessment Mouth opens: >3 cm Mallampati Score: II Teeth Condition: Intact Neck Range of motion (ROM): Full ROM Focused Labs Anesthesia Preop lab: CBC WBC 4.7 K/mm3 (4.4-11.0) 12/17/24 05:40 12/17/24 RBC 4.75 M/mm3 (4.2-5.4) 12/17/24 05:40 12/17/24 Hgb 12.7 g/dL (12.0-15.0) 12/17/24 05:40 12/17/24 Hct 39.3 % (37-47) 12/17/24 05:40 12/17/24 Plt Count 293 K/mm3 (150-450) 12/17/24 05:40 12/17/24 CHEMISTRY Potassium 3.9 mmol/L (3.3-5.1) 12/17/24 05:40 12/17/24 Sodium 138 mmol/L (133-145) 12/17/24 05:40 12/17/24 BUN 6 mg/dL (4-19) 12/17/24 05:40 12/17/24 Creatinine 0.60 mg/dL (0.70-1.20) L 12/17/24 05:40 12/17/24 Glucose 97 mg/dL (70-99) 12/17/24 05:40 12/17/24 TSH 0.40 uIU/mL (0.358-3.74) 12/31/14 11:26 12/31/14 COAG Urine Test Negative Negative 12/16/24 22:20 12/16/24 Pre-Assessment Diagnosis/Proposed Procedure Planned Operative Procedure(s): Laparoscopic cholecystectomy with intraoperative cholangiography. 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 When Was Last Pacemaker Check QUESTION #4 FULL TEXT: You/Your Family Experience fever (hyperthermia) with Anesthesia Last Oral Intake Last Oral intake: Last Oral Intake NPO since 00:00 12/17/24 13:00 Meds taken in AM with sips of No 12/17/24 13:00 water? Meds patient instructed to take am of surgery PONV PONV - aquatic life laborer: PONV - aquatic life laborer Female HX of Motion Sickness HX of N/V After Surgery Non-Smoker Duration of Surgery greater than 60 minutes Number of Risk Factors PONV Score Height & Weight Height & Weight: Anesthesia: Height & Weight Height 5 ft 12/17/24 13:00 Weight: 99 kg 12/17/24 13:00 Body Mass Index (BMI) 42.6 12/17/24 13:00 Respiratory Assessment Respiratory Assessment - aquatic life laborer: Respiratory Tract Infection Hx - aquatic life laborer Hx Respiratory Tract Infection No 12/16/24 22:26 STOP Sleep Apnea STOP Sleep Apnea - aquatic life laborer: STOP Sleep Apnea - aquatic life laborer Hx Hypertension No 12/16/24 22:12 Hx Sleep Apnea No 12/16/24 22:12 CPAP BIPAP Do you snore loudly (louder Yes 12/16/24 22:12 than talking or can be heard Do you often feel tired/ No 12/16/24 22:12 fatigued/ sleepy during daytime? Has anyone observed you stop No 12/16/24 22:12 breathing during sleep? STOP Results Negative 12/16/24 22:12 QUESTION #5 FULL TEXT : Do you snore loudly (louder than talking or can be heard through closed doors)? 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 Specify any problems Hx of Preganancy in last 3 No 12/16/24 22:12 Months Nurse Filling Out Transfusion DREDICK 12/16/24 22:12 & Questions: Date: 12/16/24 12/16/24 22:12 Time: 22:13 12/16/24 22:12 Patient unable to answer at this time (ie. confused, unrespo /Reproduction History /Reproductive History - aquatic life laborer: /Reproductive Hx- aquatic life laborer Hx Now No 12/16/24 22:26 Gestational Age (in weeks): EDC: Hx Hx Para Hx Section SAB No 12/16/24 22:26 Active Medications Active Medications: Current Medications Generic Name Dose Route Start Last Admin Trade Name Freq PRN Reason Stop Dose Admin Acetaminophen 500 mg 12/16/24 21:21 12/16/24 22:21 Acetaminophen 500 Mg Tablet PO 500 mg Q6H PRN PRN Administration Pain Score 1-10 Hydromorphone HCl 0.5 mg 12/16/24 21:21 12/17/24 07:55 Hydromorphone 0.5 Mg/0.5 Ml Syringe IV 0.5 mg Q4H PRN PRN Administration Pain Score 6-10 Sodium Chloride 1,000 mls @ 125 mls/hr 12/16/24 21:25 12/17/24 05:31 IV 125 mls/hr .Q8H VANESSA Administration Piperacillin Sod/Tazobactam 50 mls @ 12.5 mls/hr 12/17/24 06:00 12/17/24 13:47 Sod 3.375 gm/ Sodium Chloride IV 12.5 mls/hr Q8 VANESSA Administration Sodium Chloride 250 mls @ 15 mls/hr 12/16/24 22:03 IV .[id number] PRN Saline Flush Sodium Chloride 250 mls @ 15 mls/hr 12/16/24 22:03 12/17/24 07:18 IV 0 mls/hr .[id number] PRN Infusion Additional IVPB Infusion Sodium Chloride 1,000 mls @ 15 mls/hr 12/17/24 13:35 12/17/24 13:45 IV 15 mls/hr .Q48H VANESSA Administration Ondansetron HCl 4 mg 12/16/24 21:21 12/17/24 08:00 Ondansetron 4 Mg/2 Ml Vial IV 4 mg Q6H PRN PRN Administration NAUSEA/VOMITING Sodium Chloride 10 - 40 ml 12/16/24 22:03 12/17/24 07:55 0.9% Saline Lock 10 Ml Syringe IV 10 ml UD PRN Administration SALINE FLUSH PFSH Medical History (Updated 12/16/24 @ 22:28 by Dot Diallo) Normal esophagogastroduodenoscopy (EGD) Medical History no medical history Home Medications ?Medication ?Instructions ?Recorded ?Last Taken ?Type NK 12/16/24 Unknown History Allergy/AdvReac Type Severity Reaction Status Date / Time diphenhydramine (From Allergy Intermediate Hives Verified 12/16/24 16:16 Benadryl) Bleach (Sodium Hypochlorite) Allergy Swelling Verified 12/16/24 16:16 shellfish derived Allergy Swelling Verified 12/16/24 16:16 Sulfa (Sulfonamide Allergy Anaphylaxis Verified 12/16/24 16:16 Antibiotics) Surgical History no surgical history no surgical history Social History Smoking Status: Never smoker substance use type: does not use Review of Systems (Anesthesia) ROS Narrative System reviewed and no additional complaints, except as documented.
--- NOTE | 2024-12-17 14:30 | GALL_PTH ---
PATIENT: ABHIJIT BUNN LOC: MS3 U#:[id number] AGE/SX: 29/F [place] [facility] [place]: Dr. Tao Etienne MD : [id number] BED: 1 DIS: 12/19/2024 SPEC #: [id number] RECD: 12/17/24 18:15 STATUS: CLARKE REJossy #: [id number] HAYES: 12/17/24 14:[address]: Tao Etienne DEPT: SURGICAL PATHOLOGY RECD BY: Javi Devi ENTERED: 12/18/24 08:27 SP TYPE: TIFFANY SAINZ DR: Dr. Kevin Arias MD Tissues: A - Gallbladder, NOS Procedures: Surgery Specimen Level III HEADER OPERATION: Laparoscopic cholecystectomy with IOC PRE-OP DIAGNOSIS: Cholelithiasis, acute calculous cholecystitis TISSUE SUBMITTED: A- Gallbladder MICROSCOPIC DIAGNOSIS A. Gallbladder, cholecystectomy: * Mild chronic cholecystitis with cholelithiasis MICROSCOPIC DESCRIPTION Slides are reviewed. GROSS DESCRIPTION A. Received in formalin in a container labeled with the patient's name, date of , and gallbladder is an 8.7 x 2.8 x 2.0 cm intact cholecystectomy specimen. A clamped 1.0 cm in length by 0.4 cm in diameter cystic duct margin is identified and inked black. The margin is shaved to reveal haro-yellow, bosselated, and friable stone fragments within the cystic duct, and present at the margin. The serosa is within normal limits. The specimen is opened to reveal a moderate amount of viscous green bile with multiple yellow, bosselated, and friable stones measuring up to 0.4 cm in greatest dimension. The mucosa is bile-stained green with diffuse schuler stippling. There is an average wall thickness of 0.4 cm. Recycling Worker sections are submitted in A1 (including cystic duct margin, en face with full-thickness sections). [facility] 12-18-2024 CPT:09538
--- NOTE | 2024-12-17 15:00 | RAD_ITS ---
EXAM: Intraoperative cholangiogram. CLINICAL HISTORY: Laparoscopic cholecystectomy. COMPARISON: Comparison is made with prior study done earlier in the day. TECHNIQUE: The examination was repeated with glucagon. Fluoroscopy time: 48.3 seconds. Cumulative dose: 32.83 mGy FINDINGS: Persistent filling defect in the distal portion of the common bile duct with poor excretion into the duodenum. Retained debris/calculi should be ruled out. RAD/Cholangiogram O.R./Subsequent IMPRESSION: Persistent filling defect in the distal portion of the common bile duct. Retai chen debris/stones should be ruled out. Reading Location: [facility]
[2024-12-17] MEDS: Bupiv/Epi 0.25% 30 ML Vial (16:48)
--- NOTE | 2024-12-17 16:49 | OP.PCM_ITS ---
Procedures Digestive 40xxx-49xxx: 47561 Laparo cholecystectomy/graph Operative Report (Standard) Operative Information Date of Procedure: 12/17/24 Pre-Operative Diagnosis: Cholelithiasis and biliary colic with elevated liver function testing Post-Operative Diagnosis: Acute on chronic cholecystitis with choledocholithiasis Surgery/Procedure Performed: Laparoscopic cholecystectomy with intraoperative ch olangiography government clerk: Yes [employer] Sales Representative: Aimee Quinones Tasks completed by certified first assistant: Opening & closing Type of Anesthesia: General/Supplemental RN Documented Start/Stop Times: Operation Date: 12/17/24 14:30 Case Time Into Pre-Op 12/17/24 13:32 Out of Pre-Op 12/17/24 14:45 Anesthesia Start 12/17/24 14:50 Into Room 12/17/24 14:50 Procedure Start 12/17/24 15:18 Procedure End 12/17/24 16:57 Anesthesia End 12/17/24 17:07 Out of Room 12/17/24 17:07 Into Recovery 12/17/24 17:10 Procedure Start Time: 15:18 Procedure Stop Time: 16:57 Select all DRAINS/GRAFTS/IMPLANTS that apply: None Estimated Blood Loss: 10 Specimen collected: Yes Description of specimen(s) removed: Gallbladder Description of surgery: After proper identification in the preoperative holding area the patient was brought to the operating room where she was positioned supine on the operating room table. Preoperatively SCDs were placed and antibiotics were administered. General anesthesia was then induced. Patient's abdomen was prepped and draped in usual sterile fashion. A formal timeout was conducted to confirm both patient and the procedure. Procedure was begun with a an umbilical incision which was extended deeply down to the level of the fascia. The fascia was elevated and incised, as well as the peritoneum. A finger sweep was performed to ensure there were no underlying adhesions and a 12 mm balloon trocar was inserted. Pneumoperitoneum was established at 15 mmHg. Three additional trocars (all 5 mm) were placed in the epigastrium and in the right upper quadrant. Inspection of the peritoneum revealed no inadvertent injury to the viscera below. The gallbladder was visualized with evidence of mild acute on chronic inflammation. The gallbladder fundus was then grasped and elevated cephalad. Then, using careful dissection the peritoneum was opened and the s tructures of the hepatocystic triangle were delineated. Once the critical view of safety was obtained, the cystic duct was singly clipped and partially divided with a ductotomy. The proximal duct was milked of numerous small yellow stones until there was backflow of bile. Using an Tejada Greenwood clamp, a cholangiocatheter was fed into the proximal segment of the cystic duct and clamped into place. Under fluoroscopy a cholangiogram was then obtained showing a standard length cystic duct flowing into a common bile duct with obstructed antegrade flow of contrast and nonfilling of the duodenum. There was retrograde flow through the common hepatic duct into the right and left hepatic ducts. Anesthesia was asked to administer 1 g of glucagon and the wait period of 5 minutes was established. The above process was repeated, but unfortunately there was persistent nonprogression of the contrast With this result, the cholangiocatheter was withdrawn and the proximal cystic duct was sealed with clips and the cystic duct was completely transected. The same process was used for the cystic artery. The gallbladder was then removed from the gallbladder fossa with the use of electrocautery. Several small secondary arteries were identified feeding the body portion of the gallbladder and were singly clipped and then divided with cautery. Selective electrocautery was used to obtain hemostasis in the gallbladder fossa. During this process of removal from the fossa two inadvertent rents in the gallbladder wall resulted in local spillage of bile. Titanium clips were placed across the rent to minimize the risk of further bile spillage. The gallbladder was placed in an Endo Catch bag and removed from the peritoneum. Morison's pouch was irrigated and the effluent was suctioned free of the peritoneum. Hemostasis was again confirmed. The umbilical port site was closed under direct laparoscopic vision using interrupted #1 PDS suture and a Mark-Madeline suture passer. Then pneu moperitoneum was evacuated and the sutures were tied down. A total of 30 mL of anesthetic was injected at the port sites for postoperative pain control. The skin of each port site was then closed in subcuticular fashion using 4-0 Monocryl. Steri-Strips and bandages were applied as dressings. Patient tolerated the procedure well without any apparent complications. On emergence from their anesthetic the patient was taken to PACU for ongoing recovery. Surgical Findings: ? Evidence of acute on chronic cholecystitis with mild gallbladder wall th ickening and mild edema ? Cystic duct occluded with numerous yellow gallstones ? Cholangiogram showing no antegrade filling of the common bile duct but evidence of distal occlusion and minimal to no filling of the duodenum. Retrograde filling present for the common hepatic and proper hepatic ducts. Complications Complications: No Admit VTE Documentation VTE Mechan Device Prophylaxis: SCD's
--- NOTE | 2024-12-17 17:11 | PCM.POST.ANE ---
Anesthesia: Postop Eval I Current Vital Signs Temperature: 98.2 F Pulse Rate: 73 Blood Pressure: 106/74 Respiratory Rate: 16 Pulse Ox: 97 Oxygen Delivery Method: Room Air Assessment Airway patent: Yes Spontaneous unlabored respirations: Yes Mental status: Awake and Calm nausea: No Vomiting: No Anesthesia Complication: No Fluid Hydration Crystalloid volume administer (ml): 1,000 Total IV fluid infused: 1,000 Progress Note Anesthesia document: Postop Eval 1 completed: Yes
--- NOTE | 2024-12-17 18:32 | PCM.POSTANE2 ---
Anesthesia Postop Eval I Sum Postop Eval Completion status Anesthesia document: Postop Eval 1 completed: Yes Anesthesia Postop Eval I Summary Anesthesia Postop Eval I Summary: Anesthesia Postop Eval I: Assessment Summary Airway patent Yes 12/17/24 17:14 Spontaneous unlabored Yes 12/17/24 17:14 respirations Mental status Awake,Calm 12/17/24 17:14 nausea No 12/17/24 17:14 Vomiting No 12/17/24 17:14 Anesthesia Postop Eval I: Fluid Summary Crystalloid volume administer 1,000 12/17/24 17:14 (ml) Colloids volume administered ( ml) Blood Product volume administered (ml) Total IV fluid infused 1,000 12/17/24 17:14 Anesthesia Postop Eval I: Summary Notes Anesthesia Complication No 12/17/24 17:14 Anesthesia Complication Comment: Post-operative progress note Anesthesia: Postop Eval II Evaluation Mental status: Awake and Calm Pain Level: 3 nausea: No Vomiting: No Complications Anesthesia Complication: No
[2024-12-17] MEDS: oxyCODONE 5 MG Tablet PO (20:00)
[2024-12-17] MEDS: Acetaminophen 500 MG Tablet PO (20:00)
[2024-12-18] VITALS (13 sets, daily range): BP systolic 99–142; BP diastolic 59–89; PULSE 70–116; RESP 16–18; TEMP 36.4–37.2; O2SAT 94–100; BMI 42.6
[2024-12-18] MEDS: Acetaminophen 500 MG Tablet PO ×2 (02:05→21:55)
[2024-12-18] MEDS: oxyCODONE 5 MG Tablet PO (02:05)
[2024-12-18] MEDS: 0.9% Normal Saline (1000mL) 1,000 ML 125 ML IV ×3 (03:15→19:41)
[2024-12-18 05:32] LABS: Absolute Neutrophil Count 7.9 X10^3/uL (2.0-7.7); Basophil# 0.01 X10^3/uL; Basophil% 0.1 % (0-1); Hematocrit 37.9 % (37-47); Hemoglobin 12.3 g/dL (12.0-15.0); Lymphocyte % 6.8 % (19-41); Mean Corp Hgb Conc 32.5 g/dL (32-36); Mean Corpuscular Hgb 26.6 pg (27.0-32.0); Mean Platelet Vol. 9.2 fl (6.2-12.0); Monocyte# 0.28 X10^3/uL; Monocyte% 3.2 % (0-10); NRBC Flagged by Analyzer 0 % (0-5); Neutrophil # 7.94 X10^3/uL (2.7-7.7); Neutrophil % 89.6 % (47-70); POSITIVE DIFFERENTIAL YES; Platelet Count 301 K/mm3 (150-450); RBC Distribution Width CV 13.8 % (11.6-14.6); RBC Distribution Width SD 40.9 fl (35.1-43.9); Red Blood Count 4.62 M/mm3 (4.2-5.4); White Blood Count 8.9 K/mm3 (4.4-11.0)
[2024-12-18 06:05] LABS: ALB/GLOB Ratio 1.4 RATIO (0.9-2.4); AST(SGOT) 457 U/L (<=31); Alanine Aminotransfer ALT/SGPT 657 U/L (<=34); Albumin, Serum 3.9 g/dL (3.5-5.0); Alkaline Phosphatase 157 U/L (35-104); Anion Gap 11 (5-15); BUN 5 mg/dL (4-19); BUN/Creat Ratio 7.3 RATIO (10-20); Calcium,Total 8.7 mg/dL (7.6-11.0); Carbon Dioxide 21.2 mmol/L (21.0-32.0); Chloride 106 mmol/L (98-108); Creatinine, Serum 0.65 mg/dL (0.70-1.20); EST Glomerular Filtration Rate 122 (>60); Estimated Creatinine Clearance 134.87 ml/min (50-250); Globulin 2.8 g/dL (2.2-4.2); Glucose 126 mg/dL (70-99); Protein, Total 6.7 g/dL (5.9-8.4); Sodium Level 138 mmol/L (133-145); Total Bilirubin 1.16 mg/dL (0.00-1.30)
[2024-12-18] MEDS: Piperacil/Tazobactam 3.375 GM in 0.9% Normal Saline (50mL MB+) 50 ML IV ×3 (06:24→21:52)
--- NOTE | 2024-12-18 07:56 | PCM.PN.SRG ---
Subjective Subjective Patient seen and examined during AM rounds. She is found resting in bed. She reports some soreness overnight and this was confirmed by nursing. She otherwise states she is feeling better. She wishes to know when she is likely to go for her ERCP procedure with gastroenterology. She states that she had wished for some solid food but at the same time denies much of an appetite. Objective Data Objective Data Vital Signs: Vital Signs Temp Pulse Resp BP Pulse Ox O2 Del Method O2 Flow Rate 98.9 F 70 16 99/59 L 98 Room Air 2 12/18/24 06:21 12/18/24 06:21 12/18/24 06:21 12/18/24 06:21 12/18/24 06:21 12/18/24 06:21 12/17/24 18:09 Oxygen Flow Rate (L/min) 2 Oxygen Delivery Method Room Air Weight: 218 lb 4.122 oz Body Mass Index (BMI) 42.6 Intake & Output: Intake and Output for Last 24 Hours 12/16/24 12/17/24 12/18/24 23:59 23:59 23:59 Intake Total 1050 / 1750 2791.83 / 3041.83 1418.5 / 1418.5 Balance 1050 / 1750 2791.83 / 3041.83 1418.5 / 1418.5 Lab / Micro Data 12/18/24 05:24 12/18/24 05:24 Labs: Laboratory Results - last 24 hr 12/18/24 05:24: WBC 8.9, RBC 4.62, Hgb 12.3, Hct 37.9, MCV 82.0, MCH 26.6 L, MCHC 32.5, RDW Std Deviation 40.9, RDW Coeff of Serg 13.8, Plt Count 301, MPV 9.2, Immature Gran % (Auto) 0.300, Neut % (Auto) 89.6 H, Lymph % (Auto) 6.8 L, Beckham % (Auto) 3.2, Eos % (Auto) 0.0, Baso % (Auto) 0.1, Absolute Neuts (auto) 7.9 H, Absolute Lymphs (auto) 0.60 L, Nucleated RBC % 0, Sodium 138, Potassium 4.0, Chloride 106, Carbon Dioxide 21.2, Anion Gap 11, BUN 5, Creatinine 0.65 L, Estim Creat Clear Calc 134.87, Est GFR (MDRD) Non-Af 122, BUN/Creatinine Ratio 7.3 L, Glucose 126 H, Calcium 8.7, Total Bilirubin 1.16, AST 457 H, ALT 657 H, Alkaline Phosphatase 157 H, Total Protein 6.7, Albumin 3.9, Globulin 2.8, Albumin/Globulin Ratio 1.4 Radiography Diagnostic Testing: Radiology Impression Cholangiogram 12/17/24 07:51 IMPRESSION: Intraoperative cholangiogram fluoroscopy as above. Reading Location: [facility] Physical Exam Const oriented x3 and no apparent distress Resp normal respiratory effort GI GI Narrative: Minimally distended, operative dressings intact with spotting strikethrough bloody drainage, soft, minimally and appropriately tender to palpation about incisions (patient gestures to the right upper quadrant medial incision as being the most tender of all) Assessment & Plan Assessment/Plan (1) Choledocholithiasis with acute cholecystitis: PLAN: Patient 29-year-old female postoperative day 1 from laparoscopic cholecystectomy with intraoperative cholangiography. Postoperative diagnosis is acute cholecystitis with choledocholithiasis as per positive cholangiography. GI notified intraoperatively and reports intent to proceed with ERCP later today. Patient had overall uneventful overnight course but is sore this morning. She was made n.p.o. past midnight in anticipation of ERCP. Laboratories were reviewed and consistent with persistent biliary obstruction. Will plan to follow-up procedure with GI and determine if patient is appropriate for discharge to home. Tao Etienne MD General Surgery Endocrine Surgery Pager: [facility] [address] [place] [address], [facility], [address] [place] [address] Office: [phone] (2) Cholelithiasis: (3) Elevated liver function tests: (4) Abdominal pain, acute: Charges/Coding Visit Charges Inpatient E&M: 68401 Subs Hosp L2
--- NOTE | 2024-12-18 09:29 | DS.PCM_ITS ---
Providers Date of Admission: 12/17/24 Primary Care Physician: Dr. Kevin Arias MD Consultations 12/17/24 17:26 Consult: Gastroenterology Routine Consulting Provider: [facility] G[facility] Reason for Consult: choledocholithiasis EMERGENT Consult: Yes MD Notified: Yes Date Notified: 12/17/24 Time Notified: 17:26 Method of Notification: Verbal Reason For Visit: CHOLELITHIASIS WITH ELEVATED LFTS CONCERNING Diagnosis Discharge Diagnosis (1) Choledocholithiasis with acute cholecystitis: Status: Acute Code(s): K80.42 - Calculus of bile duct with acute cholecystitis without obstruction (2) Cholelithiasis: Status: Acute Code(s): K80.20 - Calculus of gallbladder without cholecystitis without obstruction (3) Elevated liver function tests: Status: Acute Code(s): R79.89 - Other specified abnormal findings of blood chemistry (4) Abdominal pain, acute: Status: Acute Code(s): R10.9 - Unspecified abdominal pain Plan I am following this patient in conjunction with Dr. Etienne. He has independently evaluated this patient. Labs reviewed. Liver enzymes increased Plan for laparoscopic cholecystectomy with intraoperative cholangiogram with Dr. Etienne at 2:30 today We will continue to monitor this patient Medications at Discharge Home Medications acetaminophen 500 mg tablet 500 mg PO Q6H PRN PRN Pain Score 1-10 #0 tabs 12/18/24 oxycodone 5 mg tablet 5 mg PO Q6H PRN PRN Pain Score 6-10 3 days #9 tabs 12/18/24 Hospital Course Operations cholecystecomy and ERCP Summary of Care Provided Minutes Spent on Discharge: 30 Hospital Course: Patient is a 29 y/o F who presented with 1 day history of right upper quadrant abdominal pain. RUQ u/s was obtained and demonstrated cholelithiasis and mildly dilated common bile duct without cholecystitis. Patient's liver enzymes were elevated and abdominal exam was positive for Cheema's sign and tenderness in the RUQ. Dr. Etienne performed a laparoscopic cholecystectomy with intraoperative cholangiogram on 12/17. Patient was noted to have choledocholithiasis on cholangiogram. Glucagon was attempted to push the gallstones through, unfortunately this was unsuccessful. Dr. Mejía performed an ERCP with gallstone removal and 1 stent placement on 12/18. Patient tolerated both procedures well. She had an uneventful hospitalization. Upon discharge, she denies any nausea, vomiting, fever. She notes incisional discomfort. She is tolerating a diet. She will follow-up with our office in 2 weeks for a post-operative evaluation. Physical Exam GI normal to inspection, nondistended, normoactive bowel sounds GI Narrative: Abdomen- Incisions c/d/i. No erythema or infection noted. Weight / BMI Weight Weight: 218 lb 4.122 oz Body Mass Index (BMI) 42.6 ABG / Lab / Microbiology Data 12/18/24 05:24 12/18/24 05:24 Laboratory: Laboratory Results - last 24 hr 12/18/24 05:24: WBC 8.9, RBC 4.62, Hgb 12.3, Hct 37.9, MCV 82.0, MCH 26.6 L, MCHC 32.5, RDW Std Deviation 40.9, RDW Coeff of Serg 13.8, Plt Count 301, MPV 9.2, Immature Gran % (Auto) 0.300, Neut % (Auto) 89.6 H, Lymph % (Auto) 6.8 L, Jay % (Auto) 3.2, Eos % (Auto) 0.0, Baso % (Auto) 0.1, Absolute Neuts (auto) 7.9 H, Absolute Lymphs (auto) 0.60 L, Nucleated RBC % 0, Sodium 138, Potassium 4.0, Chloride 106, Carbon Dioxide 21.2, Anion Gap 11, BUN 5, Creatinine 0.65 L, Estim Creat Clear Calc 134.87, Est GFR (MDRD) Non-Af 122, BUN/Creatinine Ratio 7.3 L, Glucose 126 H, Calcium 8.7, Total Bilirubin 1.16, AST 457 H, ALT 657 H, A lkaline Phosphatase 157 H, Total Protein 6.7, Albumin 3.9, Globulin 2.8, Albumin/Globulin Ratio 1.4 Radiography Diagnostic Testing: Radiology Impression Cholangiogram,Operative 12/17/24 15:00 IMPRESSION: Persistent filling defect in the distal portion of the common bile duct. Retained debris/stones should be ruled out. Reading Location: [id number] Cholangiopancreatogram 12/18/24 15:00 IMPRESSION: A biliary stent was placed in the common bile duct. Reading Location: [id number]/C Instructions Discharge Diet: Light diet - advance as tolerated Discharge Activity: May Shower (48 hours. No tube bathing for 2 weeks) Lifting Restrictions: No lifting greater than 15 pounds for 2 weeks Call your doctor if your incision/area has: Continuous Slow Oozing, Sudden Increased Bleeding, Increased Pain/ Swelling, Increased Redness, Foul Smelling Discharge and Swelling at the incision site Suture Line Care: Avoid Pulling/Pushing and Avoid Pinching/Bending Remove Dressing in: 2 days Cleanse incision/area with: Soap & Water DC O2, CPAP, BIPAP Needs Home O2 Discharge instructions: No DC home with Oxygen: No Please Follow Up With: Tierra Molina PA-C When: Please contact our office at [phone], option #2 to schedule a 2 week follow-up appointment. Meaningful Use Info Meaningful Use Meaningful Use Diagnoses (Choose all that apply): None applicable Ischemic Stroke Statin Dosing Therapy Reference: STATIN DOSE THERAPY REFERENCE: * Patients > 75 years receive moderate or high dose statin therapy. * Patients 75 years or YOUNGER should receive HIGH intensity statin dose unless contraindicated. You will be required to document reason for non-treatment if statin daily dose does not meet guidelines. HIGH DOSE STATIN THERAPY DAILY Atorvastatin > than or = to 40 mg Rosuvastatin > than or = to 20 mg Amlodipine + Atorvastatin > than or = to 2.5/40 mg Ezetimibe + Simvastatin 10/80 mg Simvastatin 80mg Discharge Plan Admission Admit Date/Time: 12/17/24 17:31 Primary Reason for Your Visit: Choledocholithiasis with acute cholecystitis Attending Provider: Tao Etienne Primary Care Provider: Kevin Arias Instructions Additional Instructions / Restrictions: Cholecystectomy Diet ? Start light with soups and soft bland foods. You may advance diet as tolerated. Activity ? You may drive in 3-5 days but not while taking narcotic pain medication. ? I encourage walking. You may go up steps, one at a time. ? Do not swim or use hot tubs for 2 weeks. ? For comfort, you may use warm compresses or ice as needed for 15-20 minutes at a time. Lifting ? You may lift up to 15 pounds for the first 2 weeks. Dressings/Incision ? You may shower OVER your plastic dressings ? Do NOT tub bathe for 2 week ? Leave plastic dressings on for 2 days. ? When plastic dressings are removed, you will find steri strips. It is okay to continue showering with them in place, pat them dry. ? You may remove steri-strips after 1 week. We recommend getting them soaking wet for easier removal. Medications ? Anesthesia used during surgery and pain medications may cause constipation. I recommend initiating on the day of surgery a fiber supplement like, Metamucil, Citrucel, FiberCon, Benefiber, or a generic form of these medications. 1 heaping tablespoon in water daily. You may continue to utilize any bowel regimen or oral laxatives that you routinely take. ? As long as you are not intolerant to Tylenol, acetaminophen, ibuprofen, Motrin, Advil, Aleve, or similar medications, I would recommend transitioning to these [id number] medicines as soon as possible instead of continued use of narcotic pain medication. Follow up ? You should call [facility] soon after surgery, at [phone] option 2 to make a follow up appointment for 14 days after your surgery. Discharge Orders/Prescriptions Prescriptions: New acetaminophen 500 mg Tablet 500 mg PO Q6H PRN PRN (Reason: Pain Score 1-10) Qty: 0 0RF oxycodone 5 mg Tablet 5 mg PO Q6H PRN PRN (Reason: Pain Score 6-10) 3 Days Qty: 9 0RF Referrals / Follow Up: Kevin Arias MD [Primary Care Provider] - Tierra Molina PA-C [Med Staff - [facility]] - 12/27/24 () Charges/Coding Visit Charges Inpatient E&M: 18353 Disch Hosp
--- NOTE | 2024-12-18 13:09 | PRE.ANES_ITS ---
ASA Classification* ASA Classification ASA Classification: 3 Assessment & Plan Anesthesia* Anesthesia Assessment Anesthesia Assessment: Discussed sedation and/or anesthesia options, risks, benefits, and alternatives with patient/parents/legal guardian/POA. Questions invited. The patient/parents/legal guardian/POA seems to understand and agrees to proceed with anesthesia plan. Reviewed the physical assessment, medical history, allergy history and patient home medications list prior to surgery/procedure/anesthetic and documented any changes. Performed airway and anesthesia risk assessments. Anesthesia Type Anesthesia Type: General History Source History Obtained from:: Patient and Chart Anesthesia Focused Assessment* Temperature: 97.9 F Pulse Rate: 71 Blood Pressure: 142/86 Respiratory Rate: 16 Pulse Ox: 100 Oxygen Delivery Method: Room Air Oxygen Flow Rate (L/min): 2 Airway Assessment Mouth opens: >3 cm Mallampati Score: III Teeth Condition: Intact Focused Labs Anesthesia Preop lab: CBC WBC 8.9 K/mm3 (4.4-11.0) 12/18/24 05:12/18/24 RBC 4.62 M/mm3 (4.2-5.4) 12/18/24 05:24 12/18/24 Hgb 12.3 g/dL (12.0-15.0) 12/18/24 05:24 12/18/24 Hct 37.9 % (37-47) 12/18/24 05:24 12/18/24 Plt Count 301 K/mm3 (150-450) 12/18/24 05:24 12/18/24 CHEMISTRY Potassium 4.0 mmol/L (3.3-5.1) 12/18/24 05:24 12/18/24 Sodium 138 mmol/L (133-145) 12/18/24 05:24 12/18/24 BUN 5 mg/dL (4-19) 12/18/24 05:12/18/24 Creatinine 0.65 mg/dL (0.70-1.20) L 12/18/24 05:24 Glucose 126 mg/dL (70-99) H 12/18/24 05:24 12/18/24 TSH 0.40 uIU/mL (0.358-3.74) 12/31/14 11:26 COAG Urine Test Negative Negative 12/16/24 22:20 12/16/24 Pre-Assessment Diagnosis/Proposed Procedure Planned Operative Procedure(s): Laparoscopic cholecystectomy with intraoperative cholangiography. 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 When Was Last Pacemaker Check QUESTION #4 FULL TEXT: You/Your Family Experience fever (hyperthermia) with Anesthesia Last Oral Intake Last Oral intake: Last Oral Intake NPO since 00:00 12/18/24 12:58 Meds taken in AM with sips of No 12/18/24 12:58 water? Meds patient instructed to take am of surgery PONV PONV - precinct commanding officer: PONV - precinct commanding officer Female HX of Motion Sickness HX of N/V After Surgery Non-Smoker Duration of Surgery greater than 60 minutes Number of Risk Factors PONV Score Height & Weight Height & Weight: Anesthesia: Height & Weight Height 5 ft 12/18/24 12:58 Weight: 99 kg 12/18/24 12:58 Body Mass Index (BMI) 42.6 12/18/24 12:58 Respiratory Assessment Respiratory Assessment - precinct commanding officer: Respiratory Tract Infection Hx - precinct commanding officer Hx Respiratory Tract Infection No 12/17/24 22:35 STOP Sleep Apnea STOP Sleep Apnea - precinct commanding officer: STOP Sleep Apnea - precinct commanding officer Hx Hypertension No 12/16/24 22:12 Hx Sleep Apnea No 12/17/24 17:55 CPAP BIPAP Do you snore loudly (louder Yes 12/16/24 22:12 than talking or can be heard Do you often feel tired/ No 12/16/24 22:12 fatigued/ sleepy during daytime? Has anyone observed you stop No 12/16/24 22:12 breathing during sleep? STOP Results Negative 12/17/24 17:10 QUESTION #5 FULL TEXT : Do you snore loudly (louder than talking or can be heard through closed doors)? Tobacco Use History Tobacco Use History - precinct commanding officer: Tobacco Use History - precinct commanding officer Tobacco Use Smoking Status Never smoker 12/16/24 22:12 Hx Tobacco Use No 12/16/24 22:12 Years Smoking Packs Smoked per Day Smoking Cessation Date was within the last 15 years Hx Smoking Cessation Date Hx Smoking Cessation Counseling Hematologic Medial History Hematologic Hx - precinct commanding officer: Hematologic Medical Hx - improvement coordinator Hx of Blood Transfusion No 12/16/24 22:12 Hx of Transfusion in last 3 No 12/16/24 22:12 Months Date of Last Transfusion (if within last 3 months) Ever experience any problems No 12/16/24 22:12 with transfusion(s)? Specify any problems Hx of Preganancy in last 3 No 12/16/24 22:12 Months Nurse Filling Out Transfusion DREDICK 12/16/24 22:12 & Questions: Date: 12/16/24 12/16/24 22:12 Time: 22:13 12/16/24 22:12 Patient unable to answer at this time (ie. confused, unrespo /Reproduction History /Reproductive History - precinct commanding officer: /Reproductive Hx- precinct commanding officer Hx Now No 12/17/24 22:35 Gestational Age (in weeks): EDC: Hx Hx Para Hx Section SAB No 12/17/24 22:35 Active Medications Active Medications: Current Medications Generic Name Dose Route Start Last Admin Trade Name Freq PRN Reason Stop Dose Admin Acetaminophen 500 mg 12/16/24 21:21 12/18/24 02:05 Acetaminophen 500 Mg Tablet PO 500 mg Q6H PRN PRN Administration Pain Score 1-10 Hydromorphone HCl 0.5 mg 12/16/24 21:21 12/17/24 07:55 Hydromorphone 0.5 Mg/0.5 Ml Syringe IV 0.5 mg Q4H PRN PRN Administration Pain Score 6-10 Sodium Chloride 1,000 mls @ 125 mls/hr 12/16/24 21:25 12/18/24 11:27 IV 125 mls/hr .Q8H VANESSA Administration Piperacillin Sod/Tazobactam 50 mls @ 12.5 mls/hr 12/17/24 06:00 12/18/24 11:12 Sod 3.375 gm/ Sodium Chloride IV Infused Q8 VANESSA Infusion Sodium Chloride 250 mls @ 15 mls/hr 12/16/24 22:03 IV .[id number] PRN Saline Flush Sodium Chloride 250 mls @ 15 mls/hr 12/16/24 22:03 12/18/24 07:23 IV 0 mls/hr .[id number] PRN Infusion Additional IVPB Infusion Sodium Chloride 1,000 mls @ 15 mls/hr 12/17/24 13:35 12/17/24 18:47 IV Infused .Q48H VANESSA Infusion Lactated Ringer's 1,000 mls @ 30 mls/hr 12/17/24 16:45 12/17/24 18:46 IV 12/19/24 02:04 Not Given .[id number] VANESSA Ondansetron HCl 4 mg 12/16/24 21:21 12/17/24 20:03 Ondansetron 4 Mg/2 Ml Vial IV 4 mg Q6H PRN PRN Administration NAUSEA/VOMITING Oxycodone HCl 5 mg 12/17/24 17:26 12/18/24 02:05 Oxycodone 5 Mg Tablet PO 5 mg Q6H PRN PRN Administration Pain Score 6-10 Sodium Chloride 10 - 40 ml 12/16/24 22:03 12/17/24 07:55 0.9% Saline Lock 10 Ml Syringe IV 10 ml UD PRN Administration SALINE FLUSH PFSH Medical History Normal esophagogastroduodenoscopy (EGD) Medical History no medical history Home Medications ?Medication ?Instructions ?Recorded ?Last Taken ?Type acetaminophen 500 mg tablet 500 mg PO Q6H PRN PRN Pain Score 12/18/24 Unknown Rx 1-10 #0 tabs oxycodone 5 mg tablet 5 mg PO Q6H PRN PRN Pain Sco re 12/18/24 Unknown Rx 6-10 3 days #9 tabs Allergy/AdvReac Type Severity Reaction Status Date / Time diphenhydramine (From Allergy Intermediate Hives Verified 12/16/24 16:16 Benadryl) Bleach (Sodium Hypochlorite) Allergy Swelling Verified 12/16/24 16:16 shellfish derived Allergy Swelling Verified 12/16/24 16:16 Sulfa (Sulfonamide Allergy Anaphylaxis Verified 12/16/24 16:16 Antibiotics) Surgical History no surgical history Social History Smoking Status: Never smoker substance use type: does not use Review of Systems (Anesthesia) ROS Narrative System reviewed and no additional complaints, except as documented. Physical Exam Const alert and oriented x3 Nutritional Appearance: morbidly obese HEENT dentition normal Resp normal respiratory effort and normal air movement Auscultation: clear to auscultation bilaterally Cardio regular rate and regular rhythm Neuro oriented x3 and moves all extremities
--- NOTE | 2024-12-18 14:38 | EX.PCM.CON.G ---
HPI Consult Data Date of Consult: 12/18/24 HPI Narrative Reason for Consultation: Abnormal IntraOp cholangiogram HPI Narrative: ABHIJIT BUNN, is a 29 F who presents to the ED with intermittent abdominal pain. She underwent biochemical workup and it showed cholestatic hepatitis. She underwent imaging which displayed acute cholecystitis with a mildly dilated common bile duct. She underwent an elective cholecystectomy. However during her intraoperative cholangiogram there were multiple filling defects seen in the distal common bile duct. [facility] Medical History Normal esophagogastroduodenoscopy (EGD) Medical History no medical history Home Medications ?Medication ?Instructions ?Recorded ?Last Taken ?Type acetaminophen 500 mg tablet 500 mg PO Q6H PRN PRN Pain Score 12/18/24 Unknown Rx 1-10 #0 tabs oxycodone 5 mg tablet 5 mg PO Q6H PRN PRN Pain Score 12/18/24 Unknown Rx 6-10 3 days #9 tabs Allergy/AdvReac Type Severity Reaction Status Date / Time diphenhydramine (From Allergy Intermediate Hives Verified 12/16/24 16:16 Benadryl) Bleach (Sodium Hypochlorite) Allergy Swelling Verified 12/16/24 16:16 shellfish derived Allergy Swelling Verified 12/16/24 16:16 Sulfa (Sulfonamide Allergy Anaphylaxis Verified 12/16/24 16:16 Antibiotics) Surgical History no surgical history Social History Smoking Status: Never smoker substance use type: does not use ROS Constitutional Constitutional: Denies fatigue, fever(s), poor appetite, weight gain or weight loss Gastrointestinal Gastrointestinal: Denies belching, bloating, change in bowel habits, change in stool character, chewing difficulty, coffee ground emesis, constipation, cramping, diarrhea, dyspepsia, dysphagia, early satiety, excessive flatus, fecal incontinence, heartburn, hematemesis, hematochezia, hemorrhoids, loose stools, melena, nausea, odynophagia, rectal bleeding, tenesmus, vomiting or weight changes Physical Exam Const alert, oriented x3, no apparent distress and healthy appearing General Appearance: cooperative GI normal to inspection, nondistended, normoactive bowel sounds, soft to palpation, non-tender and non-distended Percussion: normal to percussion Rectal Exam: deferred Lab / Micro Data 12/18/24 05:24 12/18/24 05:24 Labs: Laboratory Results - last 24 hr 12/18/24 05:24: WBC 8.9, RBC 4.62, Hgb 12.3, Hct 37.9, MCV 82.0, MCH 26.6 L, MCHC 32.5, RDW Std Deviation 40.9, RDW Coeff of Serg 13.8, Plt Count 301, MPV 9.2, Immature Gran % (Auto) 0.300, Neut % (Auto) 89.6 H, Lymph % (Auto) 6.8 L, [place] % (Auto) 3.2, Eos % (Auto) 0.0, Baso % (Auto) 0.1, Absolute Neuts (auto) 7.9 H, Absolute Lymphs (auto) 0.60 L, Nucleated RBC % 0, Sodium 138, Potassium 4.0, Chloride 106, Carbon Dioxide 21.2, Anion Gap 11, BUN 5, Creatinine 0.65 L, Estim Creat Clear Calc 134.87, Est GFR (MDRD) Non-Af 122, BUN/Creatinine Ratio 7.3 L, Glucose 126 H, Calcium 8.7, Total Bilirubin 1.16, AST 457 H, ALT 657 H, Alkaline Phosphatase 157 H, Total Protein 6.7, Albumin 3.9, Globulin 2.8, Albumin/Globulin Ratio 1.4 Imaging Radiology Impression Cholangiogram 12/17/24 07:51 IMPRESSION: Intraoperative cholangiogram fluoroscopy as above. Reading Location: [id number] Cholangiogram,Operative 12/17/24 15:00 IMPRESSION: Persistent filling defect in the distal portion of the common bile duct. Retained debris/stones should be ruled out. Reading Location: [id number] Assessment & Plan Assessment/Plan (1) Choledocholithiasis with acute cholecystitis: (2) Cholelithiasis: (3) Elevated liver function tests: (4) Acute calculous cholecystitis: PLAN: Very pleasant 29-year-old comes in with acute cholecystitis status post laparoscopic cholecystectomy with IOC and discovered to have choledocholithiasis. She will need undergo ERCP with stone removal. She was explained alternatives, risk and benefits include understanding bleeding, infection, sepsis, perforation, need for monitoring and . She will have an ASA of 3. Charges/Coding Visit Charges Inpatient E&M: 68882 Init Hosp L3
--- NOTE | 2024-12-18 15:00 | RAD_ITS ---
EXAM: ERCP. CLINICAL HISTORY: Abnormal intraoperative cholangiogram. COMPARISON: Prior cholangiogram done earlier in the day. TECHNIQUE: The fisher lampara net performed the ERCP. Fluoro: 56.7 seconds. 21.29 mGy. 7 images were submitted. FINDINGS: Contrast is seen within the common bile duct. A biliary stent was placed. RAD/ERCP Biliary/Pancreas IMPRESSION: A biliary stent was placed in the common bile duct. Reading Location: [facility]
--- NOTE | 2024-12-18 15:37 | PCM.POST.ANE ---
Anesthesia: Postop Eval I Current Vital Signs Temperature: 98 F Pulse Rate: 106 Blood Pressure: 127/89 Respiratory Rate: 16 Pulse Ox: 97 Oxygen Delivery Method: Room Air Assessment Airway patent: Yes Spontaneous unlabored respirations: Yes Mental status: Awake and Calm nausea: No Vomiting: No Anesthesia Complication: No Fluid Hydration Crystalloid volume administer (ml): 600 Total IV fluid infused: 600 Progress Note Anesthesia document: Postop Eval 1 completed: Yes
--- NOTE | 2024-12-18 15:50 | OP.ERCP_ITS ---
Patient Name: Olga Bass Procedure Date: 12/18/2024 2:38 PM Date of : 1995 Age: 29 Procedure: ERCP Indications: Bile duct stone(s) Providers: DO Jaz Marc MD: Tao Etienne MD Medicines: Monitored Anesthesia Care Patient Profile: This is a 29 year old female. Refer to note in patient chart for documentation of history and physical. She is status post laparoscopic cholecystectomy recently. This patient has no history of previous ERCP. Complications: No immediate complications. Procedure: Pre-Anesthesia Assessment: - Prior to the procedure, a History and Physical was performed, and patient medications and allergies were reviewed. The patient is competent. The risks and benefits of the procedure and the sedation options and risks were discussed with the patient. All questions were answered and informed consent was obtained. Patient identification and proposed procedure were verified by the physician. Mental Status Examination: alert and oriented. Airway Examination: normal oropharyngeal airway and neck mobility. Respiratory Examination: clear to auscultation. CV Examination: normal. Prophylactic Antibiotics: The patient does not require prophylactic antibiotics. Prior Anticoagulants: The patient has taken no anticoagulant or antiplatelet agents. ASA Grade Assessment: II - A patient with mild systemic disease. After reviewing the risks and benefits, the patient was deemed in satisfactory condition to undergo the procedure. The anesthesia plan was to use monitored anesthesia care (MAC). Immediately prior to administration of medications, the patient was re-assessed for adequacy to receive sedatives. The heart rate, respiratory rate, oxygen saturations, blood pressure, adequacy of pulmonary ventilation, and response to care were monitored throughout the procedure. The physical status of the patient was re-assessed after the procedure. After obtaining informed consent, the scope was passed under direct vision. Throughout the procedure, the patient's blood pressure, pulse, and oxygen saturations were monitored continuously. The Duodenoscope was introduced through the mouth, and advanced to the duodenum and used to inject contrast into the bile duct. The ERCP was accomplished without difficulty. The patient tolerated the procedure well. Scope In: 3:07:58 PM Scope Out: 3:21:38 PM Total Procedure Duration Time 0 hours 13 minutes 40 seconds Findings: The pediatric cns film was normal. The esophagus was successfully intubated under direct vision. The scope was advanced to a normal major papilla in the descending duodenum without detailed examination of the pharynx, larynx and associated structures, and upper GI tract. The upper GI tract was grossly normal. A long 0.025 inch Jagwire was passed into the biliary tree. The short-nosed traction sphincterotome was passed over the guidewire and the bile duct was then deeply cannulated. Contrast was injected. I personally interpreted the bile duct images. Ductal flow of contrast was adequate. Image quality was adequate. Contrast extended to the entire biliary tree. Opacification of the entire opacified area and entire biliary tree was successful. The maximum diameter of the ducts was 10 mm. The lower third of the main bile duct contained three stones, the largest of which was 6 mm in diameter. The main bile duct was locally dilated, with a stone causing an obstruction. The largest diameter was 10 mm. A cholecystectomy had been performed. An 8 mm biliary sphincterotomy was made with a traction (standard) sphincterotome using ERBE electrocautery. There was no post-sphincterotomy bleeding. The biliary tree was swept with a 12 mm balloon starting at the upper third of the main bile duct, middle third of the main bile duct, bifurcation, left intrahepatic duct(s) and right intrahepatic duct(s). Sludge was swept from the duct. All stones were removed. One 10 Fr by 7 cm temporary stent was placed 5 cm into the common bile duct. Bile flowed through the stent. The stent was in good position. Impression: - The entire main bile duct was dilated, with a stone causing an obstruction. - The patient has had a cholecystectomy. - Choledocholithiasis was found. Complete removal was accomplished by biliary sphincterotomy and balloon extraction. - A biliary sphincterotomy was performed. - The biliary tree was swept. - One temporary stent was placed into the common bile duct. Procedure Code(s): --- Professional --- 57588, Endoscopic retrograde cholangiopancreatography (ERCP); with placement of endoscopic stent into biliary or pancreatic duct, including pre- and post-dilation and guide wire passage, when performed, including sphincterotomy, when performed, each stent [id number], Endoscopic retrograde cholangiopancreatography (ERCP); with removal of calculi/debris from biliary/pancreatic duct(s) 71768, 26, Endoscopic catheterization of the biliary ductal system, radiological supervision and interpretation CPT copyright 2021 [employer]. All rights reserved. The codes documented in this report are preliminary and upon terminal carman review may be revised to meet current compliance requirements. Baldev Mejía DO 12/18/2024 3:50:36 PM This report has been signed electronically. Number of Addenda: 0 Note Initiated On: 12/18/2024 2:38 PM
--- NOTE | 2024-12-18 15:51 | OP.CCLET_ITS ---
12/18/2024 Kevin Arias Re : ERCP procedure for Olga Bass Teresa Arias This procedure was performed on Wednesday, December 18, 2024. My impressions and recommendations are as follows: Impressions : - The entire main bile duct was dilated, with a stone causing an obstruction. - The patient has had a cholecystectomy. - Choledocholithiasis was found. Complete removal was accomplished by biliary sphincterotomy and balloon extraction. - A biliary sphincterotomy was performed. - The biliary tree was swept. - One temporary stent was placed into the common bile duct. Recommendations : My findings are described in the full procedure note, which is enclosed. If I can be of further assistance, please feel free to contact me at . Sincerely, aBldev Mejía, 12/18/2024 3:50:36 PM This report has been signed electronically.
--- NOTE | 2024-12-18 16:22 | POSTOPAN2_ITS ---
Anesthesia Postop Eval I Sum Postop Eval Completion status Anesthesia document: Postop Eval 1 completed: Yes Anesthesia Postop Eval I Summary Anesthesia Postop Eval I Summary: Anesthesia Postop Eval I: Assessment Summary Airway patent Yes 12/18/24 15:38 CALL CENTER [email or web address] Spontaneous unlabored Yes 12/18/24 15:38 CALL CENTER SUPERVISOR.[email or web address] respirations Mental status Awake,Calm 12/18/24 15:38 CALL CENTER [email or web address] nausea No 12/18/24 15:38 CALL CENTER SUPERVISOR.[email or web address] Vomiting No 12/18/24 15:38 CALL CENTER [email or web address] Anesthesia Postop Eval I: Fluid Summary Crystalloid volume administer 600 12/18/24 15:38 CALL CENTER SUPERVISOR.[email or web address] (ml) Colloids volume administered ( ml) Blood Product volume administered (ml) Total IV fluid infused 600 12/18/24 15:38 CALL CENTER SUPERVISOR.CELYOBChan Anesthesia Postop Eval I: Summary Notes Anesthesia Complication No 12/18/24 15:38 CALL CENTER SUPERVISOR.[email or web address] Anesthesia Complication Comment: Post-operative progress note Anesthesia: Postop Eval II Evaluation Mental status: Awake and Calm Pain Level: 0 nausea: No Vomiting: No Complications Anesthesia Complication: No
--- NOTE | 2024-12-18 16:22 | PCM.POSTANE2 ---
Anesthesia Postop Eval I Sum Postop Eval Completion status Anesthesia document: Postop Eval 1 completed: Yes Anesthesia Postop Eval I Summary Anesthesia Postop Eval I Summary: Anesthesia Postop Eval I: Assessment Summary Airway patent Yes 12/18/24 15:38 ELECTRICIAN SUBSTATION SUPERVISOR.[email or web address] Spontaneous unlabored Yes 12/18/24 15:38 ELECTRICIAN SUBSTATION SUPERVISOR.[email or web address] respirations Mental status Awake,Calm 12/18/24 15:38 ELECTRICIAN SUBSTATION SUPERVISOR.[email or web address] nausea No 12/18/24 15:38 ELECTRICIAN SUBSTATION SUPERVISOR.[email or web address] Vomiting No 12/18/24 15:38 ELECTRICIAN SUBSTATION SUPERVISOR.[email or web address] Anesthesia Postop Eval I: Fluid Summary Crystalloid volume administer 600 12/18/24 15:38 ELECTRICIAN SUBSTATION SUPERVISOR.[email or web address] (ml) Colloids volume administered ( ml) Blood Product volume administered (ml) Total IV fluid infused 600 12/18/24 15:38 ELECTRICIAN SUBSTATION SUPERVISOR.CELYOBChan Anesthesia Postop Eval I: Summary Notes Anesthesia Complication No 12/18/24 15:38 ELECTRICIAN SUBSTATION SUPERVISOR.CELYOBChan Anesthesia Complication Comment: Post-operative progress note Anesthesia: Postop Eval II Evaluation Mental status: Awake and Calm Pain Level: 0 nausea: No Vomiting: No Complications Anesthesia Complication: No
[2024-12-19 00:08] VITALS: BP 101/64; PULSE 97; RESP 16; TEMP 37.1; O2SAT 97
[2024-12-19] MEDS: 0.9% Normal Saline (1000mL) 1,000 ML 125 ML IV (03:53)
[2024-12-19 03:54] VITALS: BP 106/81; PULSE 61; RESP 16; TEMP 36.8; O2SAT 98
[2024-12-19] MEDS: Piperacil/Tazobactam 3.375 GM in 0.9% Normal Saline (50mL MB+) 50 ML IV (05:27)
--- NOTE | 2024-12-19 08:31 | PCM.PN.SRG ---
Subjective Subjective Patient evaluated sitting comfortably in bed. She denies any nausea, vomiting, fever. She notes minimal amount of incisional discomfort. She is tolerating her current diet. Objective Data Objective Data Vital Signs: Vital Signs Temp Pulse Resp BP Pulse Ox O2 Del Method O2 Flow Rate 98.2 F 61 16 106/81 H 98 Room Air 2 12/19/24 03:54 12/19/24 03:54 12/19/24 03:54 12/19/24 03:54 12/19/24 03:54 12/19/24 03:54 12/18/24 13:12 Oxygen Flow Rate (L/min) 2 Oxygen Delivery Method Room Air Weight: 218 lb 4.122 oz Body Mass Index (BMI) 42.6 Intake & Output: Intake and Output for Last 24 Hours 12/17/24 12/18/24 12/19/24 23:59 23:59 23:59 Intake Total 2791.83 / 3041.83 3518.5 / 3718.5 1450 / 1450 Balance 2791.83 / 3041.83 3518.5 / 3718.5 1450 / 1450 Lab / Micro Data 12/18/24 05:24 12/18/24 05:24 Radiography Diagnostic Testing: Radiology Impression Cholangiogram,Operative 12/17/24 15:00 IMPRESSION: Persistent filling defect in the distal portion of the common bile duct. Retained debris/stones should be ruled out. Reading Location: [id number] Endo Retro Cholangiopancreatogram 12/18/24 15:00 IMPRESSION: A biliary stent was placed in the common bile duct. Reading Location: [id number] Physical Exam GI GI Narrative: Abdomen- soft, slight tenderness at the incision sites. Incisions c/d/i. No erythema or infection noted. Op-sites were removed. Steri-strips intact. Positive bowel sounds. Assessment & Plan Assessment/Plan (1) Choledocholithiasis with acute cholecystitis: PLAN: I am following this patient in conjunction with Dr. Etienne. He has independently evaluated this patient. S/p ERCP with stone removal and 1 stent placement Patient to try regular diet for breakfast Patient ready for discharge today if tolerates diet Charges/Coding Visit Charges Inpatient E&M: 01035 Subs Hosp L1 (post-op)
[2024-12-19 08:53] VITALS: BP 106/56; PULSE 76; RESP 18; TEMP 36.7; O2SAT 97
--- NOTE | 2024-12-19 11:10 | CASEMGMT ---
SETH SILVA Assessment: Face to Face with pt for initial transition planning/care coordination assessment. RN RICARDO introduced self and role at [facility], pt voices understanding and consents to assessment. Pt is A&O x4 and answers all questions appropriately at this time. Pt sitting up in bed in no distress. Care providers, pharmacy, and demographics verified/updated. Admitting Dx: cholelithiasis with elevated LFTs Strata Score: 2 PCP:Juana Specialists:Denies Preferred Pharmacy:[facility] Insurance: MMO Prescription Benefit: yes LNOK: Osman Earl, Living Arrangements: Pt lives with and 2 children in a two story home with FFSU and 3 steps to enter with a rail. Pt reports she is I in ADL/IADLs and denies concerns at home. Transportation: Pt drives self and denies concerns with transportation. DME:Denies HHC/SNF: Denies hx of Pt states no concerns with going home at time of dc. Pt states no further concerns/needs. CM to follow. Advised pt to ask CM if any further questions/concerns/needs arise, voices understanding. Pt Goal: Home Plan: Home Song ANN CM
[2024-12-19 12:24] VITALS: BP 120/100; PULSE 77; RESP 18; TEMP 37.1; O2SAT 98
--- NOTE | 2024-12-19 13:22 | PHA.DC.MR.R ---
Pharmacy [place] Med Reconciliation Pharmacy Service has performed discharge medication reconciliation for this patient. Medication education papers prepared, patient discharged before counseling was attempted. Mediations reviewed. The patient's discharge medication list was reviewed for discrepancies and discrepancies were resolved. Medications at Discharge Home Medications acetaminophen 500 mg tablet 500 mg PO Q6H PRN PRN Pain Score 1-10 #0 tabs 12/18/24 oxycodone 5 mg tablet 5 mg PO Q6H PRN PRN Pain Score 6-10 3 days #9 tabs 12/18/24
== END 2024-12-19 12:44 | disposition home or self-care (01) | DRG 412 ==
LOC: ED 21:05 → MS3 21:39
PROVIDERS: Anesthesiology; Internal Medicine Gastroenterology; Physician Assistant; Admitting Provider Surgery; Emergency Provider Emergency Medicine; PCP Family Medicine; Referring Provider Surgery; Visit Provider Surgery
PROC: (CPT 47610; principal; 2024-12-17 14:10)
PROC: 0FC94ZZ Extirpation of Matter from Common Bile Duct, Percutaneous Endoscopic Approach (ICD-10-PCS; CPT 43260; principal; 2024-12-18 13:55)
DX: K80.62 Calculus of gallbladder and bile duct with acute cholecystitis without obstruction (principal); Z68.41 Body mass index [BMI] 40.0-44.9, adult; E66.813 Obesity, class 3; K75.89 Other specified inflammatory liver diseases; K80.47 Calculus of bile duct with acute and chronic cholecystitis with obstruction; K83.8 Other specified diseases of biliary tract; R79.89 Other specified abnormal findings of blood chemistry; Z79.2 Long term (current) use of antibiotics
CPT/HCPCS: 36415; 74300; 74301; 74330; 76000; 76705; 80053; 81001; 81025; 83690; 85025; 88304; 93005; 99284; C2625; A4216; J1610; J2405

== ENCOUNTER → 2025-01-22 | Outpatient (CLI) | payer OTHER, SELFPAY ==
[2025-01-22 18:39] LABS: AST(SGOT) 20 U/L (<=31); Alanine Aminotransfer ALT/SGPT 17 U/L (<=34); Albumin, Serum 4.3 g/dL (3.5-5.0); Alkaline Phosphatase 111 U/L (35-104); Bilirubin, Direct 0.13 mg/dL (0.00-0.30); Globulin 3.4 g/dL (2.2-4.2); Protein, Total 7.7 g/dL (5.9-8.4); Total Bilirubin 0.32 mg/dL (0.00-1.30)
== END | disposition home or self-care (01) ==
LOC: LAB 16:19
PROVIDERS: PCP Family Medicine; Referring Provider Nurse Practitioner Acute Care; Visit Provider Nurse Practitioner Acute Care
DX: R74.01 Elevation of levels of liver transaminase levels (principal)
CPT/HCPCS: 36415; 80076

== ENCOUNTER 2025-02-25 12:01 | Day surgery (SDC) | payer OTHER, SELFPAY ==
[2025-02-25] VITALS (10 sets, daily range): BP systolic 101–138; BP diastolic 63–94; PULSE 75–103; RESP 16–18; TEMP 36.4–36.9; O2SAT 98–100; BMI 43.2
--- NOTE | 2025-02-25 12:07 | EKG12_ITS ---
Test Reason : PREOP Blood Pressure : */* mmHG Vent. Rate : 74 BPM Atrial Rate : 74 BPM P-R Int : 138 ms QRS Dur : 82 ms QT Int : 392 ms P-R-T Axes : 21 25 30 degrees QTcB Int : 435 ms Normal sinus rhythm Normal ECG When compared with ECG of 17-Dec-2024 04:24, No significant change was found Confirmed by LEANN BENJAMIN, ALICE ([id number]), science editor NICHOLAS FOSS ([id number]) on 03/04/2025 2:02:45 PM Referred By: Kevin Arias Confirmed By: ALICE NORIEGA MD
[2025-02-25 12:34] LABS: Internal QC Validated? YES +Cl - CLEAR BKGD; Pregnancy, Urine Negative Negative; Record Kit Lot#,Urine Preg 962302
[2025-02-25] MEDS: Lactated Ringers 1,000 ML 15 ML IV (12:38)
--- NOTE | 2025-02-25 12:44 | PCM.PRE.AN2 ---
ASA Classification* ASA Classification ASA Classification: 3 Assessment & Plan Anesthesia* Anesthesia Assessment Anesthesia Assessment: Discussed sedation and/or anesthesia options, risks, benefits, and alternatives with patient/parents/legal guardian/POA. Questions invited. The patient/parents/legal guardian/POA seems to understand and agrees to proceed with anesthesia plan. Reviewed the physical assessment, medical history, allergy history and patient home medications list prior to surgery/procedure/anesthetic and documented any changes. Performed airway and anesthesia risk assessments. Anesthesia Type Anesthesia Type: MAC History Source History Obtained from:: Patient and Chart Anesthesia Focused Assessment* Temperature: 97.9 F Pulse Rate: 84 Blood Pressure: 138/94 Respiratory Rate: 18 Pulse Ox: 99 Oxygen Delivery Method: Room Air Airway Assessment Mouth opens: >3 cm Mallampati Score: II Teeth Condition: Intact Neck Range of motion (ROM): Full ROM Labs Anesthesia Preop lab: CBC WBC 8.9 K/mm3 (4.4-11.0) 12/18/24 05:12/18/24 RBC 4.62 M/mm3 (4.2-5.4) 12/18/24 05:24 12/18/24 Hgb 12.3 g/dL (12.0-15.0) 12/18/24 05:24 12/18/24 Hct 37.9 % (37-47) 12/18/24 05:24 12/18/24 Plt Count 301 K/mm3 (150-450) 12/18/24 05:24 12/18/24 CHEMISTRY Potassium 4.0 mmol/L (3.3-5.1) 12/18/24 05:24 12/18/24 Sodium 138 mmol/L (133-145) 12/18/24 05:24 12/18/24 BUN 5 mg/dL (4-19) 12/18/24 05:24 12/18/24 Creatinine 0.65 mg/dL (0.70-1.20) L 12/18/24 05:24 12/18/24 Glucose 126 mg/dL (70-99) H 12/18/24 05:24 12/18/24 TSH 0.40 uIU/mL (0.358-3.74) 12/31/14 11:26 12/31/14 COAG Urine Test Negative Negative 02/25/25 12:20 02/25/25 Pre-Assessment Diagnosis/Proposed Procedure Planned Operative Procedure(s): ERCP Anesthesia History Anesthesia History - channel cementer insole machine: Anesthesia History - channel cementer insole machine Hx Hospitalization Yes: [facility]/ERCP 02/21/25 10:41 Any Problems With Anesthesia PONV 02/21/25 10:41 Cholinesterase deficiency No 02/21/25 10:41 You/Your Family Experience No 02/21/25 10:41 fever (hyperthermia) with Relationship Recent Exposure to Contagious No 02/25/25 12:27 Disease Does patient have nerve No 02/21/25 10:41 stimulator Patient instructed to have device shut off --Does patient have Pacemaker No 02/25/25 12:27 or ICD? When Was Last Pacemaker Check QUESTION #4 FULL TEXT: You/Your Family Experience fever (hyperthermia) with Anesthesia Last Oral Intake Last Oral intake: Last Oral Intake NPO since 18:00 02/25/25 12:27 Meds taken in AM with sips of No 02/25/25 12:27 water? Meds patient instructed to take am of surgery PONV PONV - channel cementer insole machine: PONV - channel cementer insole machine Female Yes 02/21/25 10:41 HX of Motion Sickness Yes 02/21/25 10:41 HX of N/V After Surgery No 02/21/25 10:41 Non-Smoker Yes 02/21/25 10:41 Duration of Surgery greater No 02/21/25 10:41 than 60 minutes Number of Risk Factors 3 02/21/25 10:41 PONV Score Moderate Risk 02/21/25 10:41 Height & Weight Height & Weight: Anesthesia: Height & Weight Height 5 ft 02/25/25 12:27 Weight: 100.4 kg 02/25/25 12:27 Body Mass Index (BMI) 43.2 02/25/25 12:27 Respiratory Assessment Respiratory Assessment - channel cementer insole machine: Respiratory Tract Infection Hx - channel cementer insole machine Hx Respiratory Tract Infection No 02/21/25 10:41 STOP Sleep Apnea STOP Sleep Apnea - channel cementer insole machine: STOP Sleep Apnea - channel cementer insole machine Hx Hypertension No 02/21/25 10:41 Hx Sleep Apnea No 02/21/25 10:41 CPAP BIPAP Do you snore loudly (louder No 02/21/25 10:41 than talking or can be heard Do you often feel tired/ No 02/21/25 10:41 fatigued/ sleepy during daytime? Has anyone observed you stop No 02/21/25 10:41 breathing during sleep? STOP Results Negative 02/21/25 10:41 QUESTION #5 FULL TEXT : Do you snore loudly (louder than talking or can be heard through closed doors)? 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 Specify any problems Hx of Preganancy in last 3 N/A 02/21/25 10:41 Months Nurse Filling Out Transfusion NBUCHER 02/21/25 10:41 & Questions: Date: 02/21/25 02/21/25 10:41 Time: 10:43 02/21/25 10:41 Patient unable to answer at this time (ie. confused, unrespo /Reproduction History /Reproductive History - channel cementer insole machine: /Reproductive Hx- channel cementer insole machine Hx Now No 02/21/25 10:41 Gestational Age (in weeks): EDC: Hx Hx Para Hx Section SAB No 02/21/25 10:41 Active Medications Active Medications: Current Medications Generic Name Dose Route Start Last Admin Trade Name Freq PRN Reason Stop Dose Admin Lactated Ringer's 1,000 mls @ 15 mls/hr 02/25/25 12:15 02/25/25 12:38 IV 15 mls/hr .Q48H VANESSA Administration PFSH Medical History Wears glasses Depression Anxiety Migraine headache History of hiatal hernia Heartburn Gastric reflux Non-smoker Normal esophagogastroduodenoscopy (EGD) Home Medications ?Medication ?Instructions ?Recorded ?Last Taken ?Type calcium carbonate (Tums) 200 mg PO TID PRN dyspepsia 01/22/25 02/22/25 History nnusdtw-zsugacyrvhqxo-jlpqhjzp 250 2 tab PO Q6H PRN MIGRAINES 02/21/25 02/20/25 History mg-250 mg-65 mg tablet (Excedrin Extra Strength) Allergy/AdvReac Type Severity Reaction Status Date / Time diphenhydramine (From Allergy Intermediate Hives Verified 02/25/25 12:26 Benadryl) Bleach (Sodium Hypochlorite) Allergy Swelling Verified 02/25/25 12:26 shellfish derived Allergy Swelling Verified 02/25/25 12:26 Sulfa (Sulfonamide Allergy Anaphylaxis Verified 02/25/25 12:26 Antibiotics) Surgical History History of ERCP (12/18/24) S/P laparoscopic cholecystectomy (12/17/24) Social History Smoking Status: Never smoker substance use type: does not use Review of Systems (Anesthesia) ROS Narrative System reviewed and no additional complaints, except as documented.
--- NOTE | 2025-02-25 13:00 | FLU_PTH ---
PATIENT: ABHIJIT BUNN LOC: EN U#:[id number] AGE/SX: 30/F ROOM: RE02/25/[address]: Dr. Baldev Mejía DO : 1995 BED: DIS: 02/25/2025 SPEC #: [id number] RECD: 02/25/25 14:01 STATUS: CLARKE SUZETTE #: [id number] HAYES: 02/25/25 13:[address]: Baldev Mejía DEPT: CYTOLOGY RECD BY: Javi Devi ENTERED: 02/26/25 10:58 SP TYPE: Fluid OTHR DR: Dr. Kevin Arias MD Tissues: A - Biliary tract, NOS Procedures: Special Stain Group II Surgery Specimen Level IV Cytospin Fluid HEADER OPERATION: ERCP with stent removal and balloon dilatation PRE-OP DIAGNOSIS: History of stent insertion and choledocholithiasis TISSUE SUBMITTED: A- Biliary stent for cytology DIAGNOSIS CYTOLOGY A. Biliary stent, ERCP (cytospin, cellblock): - No malignant cells identified. CYTOLOGY STUDY Slides are reviewed. CYTOLOGY GROSS A. Received is 10cm blue stent with 2 ml of yellow-thick material labeled with the patient's name and and designated per the requisition as Biliary stent. Submitted for cytology and cell block preparation. Mr 02/26/2025 CPT: 10360 ,94792
--- NOTE | 2025-02-25 13:10 | HP.PCM_ITS ---
HPI - General General Date of Admission: 02/25/25 Date of Service: 02/25/25 Chief Complaint: Biliary stent removal HPI Narrative ABHIJIT BUNN, is a 30 F who presents for ERCP with stent removal or exchange. CONSULT 12/18/2024 1) Choledocholithiasis with acute cholecystitis: (2) Cholelithiasis: (3) Elevated liver function tests: (4) Acute calculous cholecystitis: PLAN: Very pleasant 29-year-old comes in with acute cholecystitis status post laparoscopic cholecystectomy with IOC and discovered to have choledocholithiasis. She will need undergo ERCP with stone removal. She was explained alternatives, risk and benefits include understanding bleeding, infection, sepsis, perforation, need for monitoring and . She will have an ASA of 3. CCX 12/17/2024 ERCP 12/18/2024 - The entire main bile duct was dilated, with a stone causing an obstruction. - The patient has had a cholecystectomy. - Choledocholithiasis was found. Complete removal was accomplished by biliary sphincterotomy and balloon extraction. - A biliary sphincterotomy was performed. - The biliary tree was swept. - One temporary stent was placed into the common bile duct. DISCHARGE 12/19/2024 LABS 12/18/2024 AST 457, ALT 657, ALP 157 - reports everything she eats makes her very nauseated and experiences abdominal cramping with diarrhea - Imodium QOD has been helping - having constant 2-3 stools a day after meals - reports not as watery with Imodium - denies any emesis - she reports she was having these symptoms prior to CCX in addition to emesis, she reports these symptoms were sporadic prior to CCX - weight is stable - c/o HB and eating Tums like candy PFSH Medical History Wears glasses Depression Anxiety Migraine headache History of hiatal hernia Heartburn Gastric reflux Non-smoker Normal esophagogastroduodenoscopy (EGD) Home Medications ?Medication ?Instructions ?Recorded ?Last Taken ?Type calcium carbonate (Tums) 200 mg PO TID PRN dyspepsia 01/22/25 02/22/25 History wshyztv-jrvfocyqpiksg-wyrqixct 250 2 tab PO Q6H PRN [place] GRAINES 02/21/25 02/20/25 History mg-250 mg-65 mg tablet (Excedrin Extra Strength) Allergy/AdvReac Type Severity Reaction Status Date / Time diphenhydramine (From Allergy Intermediate Hives Verified 02/25/25 12:26 Benadryl) Bleach (Sodium Hypochlorite) Allergy Swelling Verified 02/25/25 12:26 shellfish derived Allergy Swelling Verified 02/25/25 12:26 Sulfa (Sulfonamide Allergy Anaphylaxis Verified 02/25/25 12:26 Antibiotics) Surgical History History of ERCP (12/18/24) S/P laparoscopic cholecystectomy (12/17/24) Social History Smoking Status: Never smoker substance use type: does not use ROS Constitutional Constitutional: Denies fatigue, fever(s), poor appetite, weight gain or weight loss Gastrointestinal Gastrointestinal: Denies belching, bloating, change in bowel habits, change in stool character, chewing difficulty, coffee ground emesis, constipation, cramping, diarrhea, dyspepsia, dysphagia, early satiety, excessive flatus, fecal incontinence, heartburn, hematemesis, hematochezia, hemorrhoids, loose stools, melena, nausea, odynophagia, rectal bleeding, tenesmus, vomiting or weight changes Vital Signs Vital Signs Vital Signs: 02/25/25 12:27 02/25/25 12:27 02/25/25 12:56 Temperature 97.9 F 97.9 F Temperature Source Temporal Pulse Rate 84 84 Respiratory Rate 18 18 Respiratory Pattern Normal Blood Pressure 138/94 H 138/94 H Blood Pressure Mean 108 Blood Pressure Source Monitor Blood Pressure Position Semi-Fowlers Blood Pressure Location Left Arm Pulse Ox 99 99 Oxygen Delivery Method Room Air Room Air Weight Weight: 221 lb 5.506 oz Body Mass Index (BMI) 43.2 Physical Exam Const alert, oriented x3, no apparent distress and healthy appearing General Appearance: cooperative GI normal to inspection, nondistended, normoactive bowel sounds, soft to palpation, non-tender and non-distended Percussion: normal to percussion Rectal Exam: deferred Results Lab / Micro Data Labs: Laboratory Results - last 24 hr 02/25/25 12:20: Urine Test Negative Assessment & Plan Assessment/Plan (1) Choledocholithiasis: PLAN: Assessment and Plan Assessment and Plan (1) Elevated transaminase level: Status: Acute (2) Choledocholithiasis: Status: Acute Orders: Orders Liver Profile Today R74.01 - Elevation of levels of liver transaminase levels Medications: New cholestyramine (Cholestyramine Light) administer w/meal; avoid other meds within 1hr before or 4-6hr after dose 4 grams PO BID 60 ea 2RF Plan 29y/o female presents for follow-up post admission for cholecystectomy complicated by post CCX choledocholithiasis. She underwent ERCP with stent placement 12/18/2024. She complains of chronic nausea and new onset post prandial diarrhea. I have started her on cholestyramine BID. She will complete labs today and we will arrange for ERCP with removal of stent.
--- NOTE | 2025-02-25 13:25 | RAD_ITS ---
PROCEDURE: ERCP BILIARY/PANCREAS 02/25/2025 REASON FOR EXAM: ERCP TECHNIQUE: ERCP BILIARY/PANCREAS COMPARISON: 12/18/2024. FINDINGS: Intraoperative fluoroscopic images for ERCP were performed. There is removal of a biliary stent. 92.8 seconds of fluoroscopic time. 46.6 mGy. See procedure report for full details. RAD/ERCP Biliary/Pancreas IMPRESSION: As above Reading Location: [id number]
--- NOTE | 2025-02-25 14:01 | PCM.POST.ANE ---
Anesthesia: Postop Eval I Current Vital Signs Temperature: 97.6 F Pulse Rate: 98 Blood Pressure: 133/86 Respiratory Rate: 16 Pulse Ox: 98 Oxygen Delivery Method: Room Air Assessment Airway patent: Yes Spontaneous unlabored respirations: Yes Mental status: Awake and Confused nausea: No Vomiting: No Anesthesia Complication: No Fluid Hydration Crystalloid volume administer (ml): 800 Total IV fluid infused: 800 Progress Note Anesthesia document: Postop Eval 1 completed: Yes
--- NOTE | 2025-02-25 14:02 | OP.ERCP_ITS ---
Patient Name: Olga Bass Procedure Date: 02/25/2025 1:09 PM Date of : 1995 Age: 30 Procedure: ERCP Indications: Common bile duct stone(s), Biliary stent removal Providers: Baldev Mejía DO Referring MD: Mile Referring Medicines: Monitored Anesthesia Care Patient Profile: This is a 30 year old female. Refer to note in patient chart for documentation of history and physical. Patient has symptoms of chronic right upper quadrant abdominal pain. Complications: No immediate complications. Procedure: Pre-Anesthesia Assessment: - Prior to the procedure, a History and Physical was performed, and patient medications and allergies were reviewed. The patient is competent. The risks and benefits of the procedure and the sedation options and risks were discussed with the patient. All questions were answered and informed consent was obtained. Patient identification and proposed procedure were verified by the physician in the pre-procedure area. Mental Status Examination: alert and oriented. Airway Examination: normal oropharyngeal airway and neck mobility. Respiratory Examination: clear to auscultation. CV Examination: normal. Prophylactic Antibiotics: The patient does not require prophylactic antibiotics. Prior Anticoagulants: The patient has taken no anticoagulant or antiplatelet agents except for NSAID medication. ASA Grade Assessment: II - A patient with mild systemic disease. After reviewing the risks and benefits, the patient was deemed in satisfactory condition to undergo the procedure. The anesthesia plan was to use monitored anesthesia care (MAC). Immediately prior to administration of medications, the patient was re-assessed for adequacy to receive sedatives. The heart rate, respiratory rate, oxygen saturations, blood pressure, adequacy of pulmonary ventilation, and response to care were monitored throughout the procedure. The physical status of the patient was re-assessed after the procedure. After obtaining informed consent, the scope was passed under direct vision. Throughout the procedure, the patient's blood pressure, pulse, and oxygen saturations were monitored continuously. The Duodenoscope was introduced through the mouth, and advanced to the duodenum and used to inject contrast into the bile duct. The ERCP was accomplished without difficulty. The patient tolerated the procedure well. Scope In: 1:38:31 PM Scope Out: 1:46:56 PM Total Procedure Duration Time 0 hours 8 minutes 25 seconds Findings: The paraffin plant sweater operator film was normal. The esophagus was successfully intubated under direct vision. The scope was advanced to a normal major papilla in the descending duodenum without detailed examination of the pharynx, larynx and associated structures, and upper GI tract. The upper GI tract was grossly normal. A long 0.025 inch Jagwire was passed into the biliary tree. The short-nosed traction sphincterotome was passed over the guidewire and the bile duct was then deeply cannulated. Contrast was injected. I personally interpreted the bile duct images. There was brisk flow of contrast through the ducts. Image quality was adequate. Contrast extended to the biliary pancreatic junction. Contrast extended to the main bile duct. Contrast extended to the cystic duct. Contrast extended to the bifurcation. Contrast extended to the hepatic ducts. Contrast extended to the entire biliary tree. Opacification of the entire biliary tree except for the cystic duct and gallbladder, biliary pancreatic junction, common bile duct, common hepatic duct, left and right hepatic ducts and all intrahepatic branches and entire biliary tree was successful. The maximum diameter of the ducts was 8 mm. The lower third of the main bile duct contained one stone, which was 6 mm in diameter. The entire biliary tree was segmentally dilated, acquired. The largest diameter was 10 mm. A cholecystectomy had been performed. A 5 mm biliary sphincterotomy was made with a braided traction (standard) sphincterotome using ERBE electrocautery. There was no post-sphincterotomy bleeding. The biliary tree was swept with a 12 mm balloon starting at the biliary pancreatic junction, upper third of the main bile duct, middle third of the main bile duct, lower third of the main duct, cystic duct, bifurcation, left intrahepatic duct(s), left main hepatic duct, right intrahepatic duct(s) and right main hepatic duct. Sludge was swept from the duct. All stones were removed. One stent was removed from the biliary tree using a snare and sent for cytology. The stent was found to be partially occluded via the water column test. Impression: - The entire biliary tree was dilated, acquired. - The patient has had a cholecystectomy. - Choledocholithiasis was found. Complete removal was accomplished by biliary sphincterotomy and balloon extraction. - A biliary sphincterotomy was performed. - The biliary tree was swept. - One stent was removed from the biliary tree. Procedure Code(s): --- Professional --- 82400, Endoscopic retrograde cholangiopancreatography (ERCP); with removal of foreign body(s) or stent(s) from biliary/pancreatic duct(s) 04182, Endoscopic retrograde cholangiopancreatography (ERCP); with removal of calculi/debris from biliary/pancreatic duct(s) 26780, Endoscopic retrograde cholangiopancreatography (ERCP); with sphincterotomy/papillotomy 89443, 26, Endoscopic catheterization of the biliary ductal system, radiological supervision and interpretation CPT copyright 2021 [employer]. All rights reserved. The codes documented in this report are preliminary and upon iron plastic bullet maker review may be revised to meet current compliance requirements. Baldev Mejía DO 02/25/2025 2:01:17 PM This report has been signed electronically. Number of Addenda: 0 Note Initiated On: 02/25/2025 1:09 PM
--- NOTE | 2025-02-25 14:02 | OP.CCLET_ITS ---
02/25/2025 Kevin Arias Re : ERCP procedure for Olga Bass Teresa Arias This procedure was performed on Tuesday, February 25, 2025. My impressions and recommendations are as follows: Impressions : - The entire biliary tree was dilated, acquired. - The patient has had a cholecystectomy. - Choledocholithiasis was found. Complete removal was accomplished by biliary sphincterotomy and balloon extraction. - A biliary sphincterotomy was performed. - The biliary tree was swept. - One stent was removed from the biliary tree. Recommendations : My findings are described in the full procedure note, which is enclosed. If I can be of further assistance, please feel free to contact me at . Sincerely, Baldev Mejía, 02/25/2025 2:01:17 PM This report has been signed electronically.
--- NOTE | 2025-02-25 14:19 | PCM.POSTANE2 ---
Anesthesia Postop Eval I Sum Postop Eval Completion status Anesthesia document: Postop Eval 1 completed: Yes Anesthesia Postop Eval I Summary Anesthesia Postop Eval I Summary: Anesthesia Postop Eval I: Assessment Summary Airway patent Yes 02/25/25 14:02 [email or web address] Spontaneous unlabored Yes 02/25/25 14:02 [email or web address] respirations Mental status Awake,Confused 02/25/25 14:02 [email or web address] nausea No 02/25/25 14:02 [email or web address] Vomiting No 02/25/25 14:02 [email or web address] Anesthesia Postop Eval I: Fluid Summary Crystalloid volume administer 800 02/25/25 14:02 [email or web address] (ml) Colloids volume administered ( ml) Blood Product volume administered (ml) Total IV fluid infused 800 02/25/25 14:02 [email or web address] Anesthesia Postop Eval I: Summary Notes Anesthesia Complication No 02/25/25 14:02 [email or web address] Anesthesia Complication Comment: Post-operative progress note Anesthesia: Postop Eval II Evaluation Mental status: Awake and Calm Pain Level: 0 nausea: No Vomiting: No Complications Anesthesia Complication: No
[2025-02-25] MEDS: Lactated Ringers 500 ML 999 ML IV (14:50)
== END 2025-02-25 15:46 | disposition home or self-care (01) ==
LOC: EN 12:02 → AC 12:03
PROVIDERS: Anesthesiology; PCP Family Medicine; Visit Provider Internal Medicine Gastroenterology
PROC: (CPT 43260; principal; 2025-02-25 12:40)
DX: Z46.59 Encounter for fitting and adjustment of other gastrointestinal appliance and device (principal); R74.01 Elevation of levels of liver transaminase levels; Z79.82 Long term (current) use of aspirin; K21.9 Gastro-esophageal reflux disease without esophagitis; Z90.49 Acquired absence of other specified parts of digestive tract
CPT/HCPCS: 43262; 43264; 43275; 74330; 76000; 81025; 88108; 88305; 88313; 93005; J2405